=== PATIENT | female | born 1950 | race Caucasian/White ===

== ENCOUNTER 2017-11-25 11:20 | Inpatient (IN) | payer OTHER, MEDICARE ==
--- NOTE | 2017-11-25 11:30 | PDOC ---
History of Present Illness - History of Present Illness Initial Comments: The patient is a 67F with a hx of neuropathy (of unknown origin) and gastric sleeve who presents with 2 days of R second toe increased pain and discoloration that the patient is concerned is infection. The patient endorses fevers at home to 101 and subsequently took Tylenol with resolution of her fever. The patient states that she usually has her toenails cut by a Optical [employer] Mechanic ; however for the last few weeks she has been doing it herself. She denies SWAIN, changes in vision, chest pain, SOB, abdominal pain, N/V/C/D, or dysuria. The patient reports stocking-glove paresthesia at baseline and reports not acute change in sensation 11/25/17 11:50 <Esdras Young - Last Filed: 11/25/17 13:10> <Grace Coronado - Last Filed: 11/25/17 16:07> - General Chief Complaint: Wound Stated Complaint: RT 2ND TOE PAIN, SWELLING Past History - Past Medical History Anemia: No Asthma: No Cancer: Yes (LEFT BREAST 1993,2013 RIGHT BREAST) Cardiac Disorders: No CVA: No COPD: No CHF: No Dementia: No Diabetes: No GI Disorders: No Disorders: No HTN: Yes Hypercholesterolemia: Yes (NO MEDS) Liver Disease: No Seizures: No Thyroid Disease: No - Surgical History Abdominal Surgery: No Appendectomy: Yes Cardiac Surgery: No Cholecystectomy: Yes Lung Surgery: No Neurologic Surgery: No Orthopedic Surgery: No - Suicide/Smoking/Psychosocial Hx Smoking History: Former smoker Have you smoked in the past 12 months: No If you are a former smoker, when did you quit?: 25 YRS AGO Hx Alcohol Use: Yes (OCCASIONALLY) Drug/Substance Use Hx: No Substance Use Type: Alcohol Hx Substance Use Treatment: No <Esdras Young - Last Filed: 11/25/17 13:10> <Grace Coronado - Last Filed: 11/25/17 16:07> - Past Medical History Allergies/Adverse Reactions: Allergies Allergy/AdvReac Type Severity Reaction Status Date / Time No Known Allergies Allergy Verified 11/25/17 11:22 Home Medications: Ambulatory Orders Pramipexole Dihydrochloride [Mirapex -] 0.25 mg PO BID 10/10/13 Aspirin [Aspirin EC] 81 mg PO DAILY 11/25/17 Cholecalciferol (Vitamin D3) [Vitamin D3 -] 3,000 unit PO DAILY 11/25/17 Multivitamin [One Daily] 1 each PO DAILY 11/25/17 Review of Systems - Review of Systems Able to Perform ROS?: Yes Comments:: GENERAL/CONSTITUTIONAL: No fever or chills. No weakness._ HEAD, EYES, EARS, NOSE AND THROAT: No change in vision. No ear pain or discharge. No sore throat._ CARDIOVASCULAR: No chest pain or shortness of breath_ RESPIRATORY: No cough, wheezing, or hemoptysis._ GASTROINTESTINAL: No nausea, vomiting, diarrhea or constipation._ GENITOURINARY: No dysuria, frequency, or change in urination._ MUSCULOSKELETAL: No joint or muscle swelling or pain. No neck or back pain._ SKIN: No rash_ NEUROLOGIC: No headache, vertigo, loss of consciousness, or change in strength/ sensation._ ENDOCRINE: No increased thirst. No abnormal weight change_ HEMATOLOGIC/LYMPHATIC: No anemia, easy bleeding, or history of blood clots._ ALLERGIC/IMMUNOLOGIC: No hives or skin allergy._ 11/25/17 11:56 Is the patient limited Spanish proficient: No <Esdras Young - Last Filed: 11/25/17 13:10> *Physical Exam - Vital Signs 11/25/17 11:56 Vital Signs Temp Pulse Resp BP Pulse Ox 98.1 F 68 18 157/91 99 11/25/17 11:20 11/25/17 11:20 11/25/17 11:20 11/25/17 11:20 11/25/17 11:20 - Physical Exam Comments: GENERAL: Awake, alert, and fully oriented, in no acute distress HEAD: No signs of trauma, normocephalic, atraumatic EYES: PERRL, EOMI, sclera anicteric, conjunctiva clear ENT: Auricles normal inspection, hearing grossly normal, nares patent, oropharynx clear without exudates. Moist mucosa NECK: Normal ROM, supple LUNGS: No distress, speaks full sentences, clear to auscultation bilaterally HEART:Regular rate and rhythm, normal S1 and S2, no murmurs appreciated, peripheral pulses normal and equal bilaterally ABDOMEN: Soft, nontender, normoactive bowel sounds. No guarding, no rebound. No masses NEUROLOGICAL: Cranial nerves II through XII grossly intact. Normal speech, normal gait, no focal sensorimotor deficits SKIN: Warm, Dry, normal turgor, no rashes or lesions noted RLE: Inspection: R second toe distal gangrene and erythema of the toe with medial distal fluctuance. No streaking. R foot warmth > L. Otherwise, compartments soft and compressible, pain within proportion, no pain to passive stretch Sensation: Decreased sensation to light touch up to knee (patient reports at baseline) Motor: 5/5 EHL, 5/5 FHL, 5/5 TA, 5/5GS, 5/5 Quad, 5/5 Ham Vascular: 2+ DP/PT LLE: Inspection: No erythema or ecchymosis. No tenderness, no obvious abnormalities, no open wounds. Compartments soft and compressible, pain within proportion, no pain to passive stretch Knee stable to anterior/posterior drawer and varus/valgus stress Sensation: Decreased sensation to light touch up to knee (patient reports at baseline) Motor: 5/5 EHL, 5/5 FHL, 5/5 TA, 5/5GS, 5/5 Quad, 5/5 Ham Vascular: 2+ DP/PT 11/25/17 11:56 <Esdras Young - Last Filed: 11/25/17 13:10> - Vital Signs Last Vital Signs Temp Pulse Resp BP Pulse Ox 99.1 F 67 18 108/62 96 11/25/17 15:38 11/25/17 15:38 11/25/17 15:38 11/25/17 15:38 11/25/17 15:38 <Grace Coronado - Last Filed: 11/25/17 16:07> ED Treatment Course - LABORATORY CBC & Chemistry Diagram: 11/25/17 12:16 11/25/17 12:16 <Esdras Young - Last Filed: 11/25/17 13:10> - LABORATORY CBC & Chemistry Diagram: 11/25/17 12:16 11/25/17 12:16 - ADDITIONAL ORDERS Additional order review: Laboratory Results 11/25/17 12:16 Sodium 141 Potassium 3.9 Chloride 103 Carbon Dioxide 29 H Anion Gap 9 BUN 15 Creatinine 0.6 Creat Clearance w eGFR > 60 Random Glucose 100 Calcium 9.0 Total Bilirubin 0.7 AST 16 ALT 14 D Alkaline Phosphatase 61 Total Protein 6.5 Albumin 3.5 11/25/17 12:16 RBC 3.71 MCV 96.1 H MCHC 33.7 RDW 12.2 MPV 8.4 - Medications Given in the ED: ED Medications Discontinued Medications Generic Name Dose Route Start Last Admin Trade Name Freq PRN Reason Stop Dose Admin Piperacillin Sod/Tazobactam 50 mls @ 100 mls/hr 11/25/17 12:52 11/25/17 13:11 Sod 3.375 gm/ Dextrose IVPB 11/25/17 13:21 100 mls/hr ONCE ONE Administration Protocol <Grace Coronado - Last Filed: 11/25/17 16:07> *DC/Admit/Observation/Transfer <Esdras Young - Last Filed: 11/25/17 13:10> - Discharge Dispostion Decision to Admit order: Yes <Grace Coronado - Last Filed: 11/25/17 16:07> Diagnosis at time of Disposition: Gangrene - Discharge Dispostion Condition at time of disposition: Stable
[2017-11-25 11:32] VITALS: BMI 27.8
--- NOTE | 2017-11-25 11:59 | PDOC ---
Attending Attestation - Resident Resident Name: AmairanialfonsoEsdras de guzman - ED Attending Attestation I have performed the following: I have examined & evaluated the patient, The case was reviewed & discussed with the resident, I agree w/resident's findings & plan, Exceptions are as noted - HPI HPI: 67 yo F history neuropathy presents with redness and discoloration to R 2nd toe. She states that she used to have her nails cut by someone due to neuropathy , but cut them herself recently because she forgot to make an appointment. She noticed some swelling, redness, then a "bruise" to the tip of the toe. She has been soaking in epsom salt to try to treat it at home. She had a fever last night. Denies pain, however, does not have any feeling in her toes at baseline. - Physicial Exam PE: GENERAL: Awake, alert, and fully oriented, in no acute distress HEAD: No signs of trauma EYES: PERRLA, EOMI, sclera anicteric, conjunctiva clear ENT: Auricles normal inspection, hearing grossly normal, nares patent, oropharynx clear without exudates. Moist mucosa NECK: Normal ROM, supple, no lymphadenopathy, JVD, or masses LUNGS: Breath sounds equal, clear to auscultation bilaterally. No wheezes, and no crackles HEART: Regular rate and rhythm, normal S1 and S2, no murmurs, rubs or gallops ABDOMEN: Soft, nontender, normoactive bowel sounds. No guarding, no rebound. No masses EXTREMITIES: R 2nd toe with redness, dry gangrene at the tip. Foot with normal pulses. Remainder of extremities with normal range of motion, no edema. No clubbing or cyanosis. No cords, erythema, or tenderness NEUROLOGICAL: Cranial nerves II through XII grossly intact. Normal speech, normal gait SKIN: Warm, Dry, normal turgor, no rashes or lesions noted. - Medical Decision Making Pt with history of neuropathy, will plan for admission for gangrene.
[2017-11-25 12:36] LABS: HEMATOCRIT 35.6 % (32.4-45.2); MCH 32.4 pg (25.7-33.7); MCHC 33.7 g/dl (32.0-36.0); MEAN CELL VOLUME 96.1 fl (80-96); MEAN PLT VOLUME 8.4 fl (7.5-11.1); PLATELET COUNT 195 K/MM3 (134-434); RBC 3.71 M/mm3 (3.60-5.2); RDW 12.2 % (11.6-15.6); WHITE BLOOD COUNT 11.1 K/mm3 (4.0-10.8)
[2017-11-25 12:46] LABS: ALBUMIN 3.5 g/dl (3.5-5.0); ALK PHOS 61 U/L (32-92); ANION GAP 9 MMOL/L (8-16); BILIRUBIN,TOTAL 0.7 mg/dl (0.2-1.0); BLOOD UREA NITROGEN 15 mg/dl (7-18); CHLORIDE 103 mmol/L (98-107); CO2 29 mmol/L (22-28); CREATININE 0.6 mg/dl (0.6-1.3); GLUCOSE,RANDOM 100 mg/dl (74-106); POTASSIUM 3.9 mmol/L (3.5-5.1); SGOT/AST 16 U/L (10-42); SGPT/ALT 14 U/L (10-40); SODIUM 141 mmol/L (136-145); TOT PROT 6.5 g/dl (6.4-8.3)
[2017-11-25] MEDS ORDERED: PIPERACILLIN/TAZOB 3.375 GM 3.375 GM in DEXTROSE 5%-WATER - 50 ML IVPB ONE (12:52)
[2017-11-25] MEDS ORDERED: VANCOMYCIN 1,000 MG VIAL (RESTRICTED TO ID ONLY) ONE (12:56)
[2017-11-25] MEDS ORDERED: PIPERACILLIN/TAZOBACTAM 3.375 GM VIAL IVPB ONE (12:56)
[2017-11-25] MEDS ORDERED: VANCOMYCIN 1,000 MG in DEXTROSE 5%-WATER - 250 ML IVPB SCH (13:00)
--- NOTE | 2017-11-25 15:14 | HP ---
CHIEF COMPLAINT: Right foot second toe redness and discoloration PCP: Nelida HISTORY OF PRESENT ILLNESS: This is a 67 year old female with PMHx of neuropathy, bilateral breast cancer ( 1992- L lumpectomy, radiation therapy; 2013 R mastectomy with implant), gastric sleeve 2015, cholecystectomy (age 22), tonsillectomy (age 9), who presented to the ED with right foot, 2nd digit redness and discoloration after cutting her nails. The patient reports she usually sees her insurance producer to have her nails trimmed, but it had been a while so she decided to cut her own nails 2 weeks ago. She reports at the time it bled slightly and she put bacitracin on it. She states she continued the bacitracin and epsom salt soaks daily. She said about one week ago she noticed redness and swelling of her right foot, 2nd digit. She states yesterday she had chills and her temperature was 101.5. She denies any headache, weakness, dizziness, chest pain, palpitations, lower extremity edema. ER course was notable for: (1) Temp 98.1, pulse 68, BP 157/91, resp 18, O2 99% on RA (2) WBC 11.1 (3) Right foot X-ray: soft tissue swelling of second toe, a destructive process is not appreciated Recent Travel: denies PAST MEDICAL HISTORY: As above PAST SURGICAL HISTORY: as above Social History: Smoking: denies Alcohol: denies Drugs: denies Family History: Allergies No Known Allergies Allergy (Verified 11/25/17 11:22) HOME MEDICATIONS: Home Medications Medication Instructions Recorded Pramipexole Dihydrochloride 0.25 mg PO BID 10/10/13 [Mirapex -] Aspirin [Aspirin EC] 81 mg PO DAILY 11/25/17 Cholecalciferol (Vitamin D3) 3,000 unit PO DAILY 11/25/17 [Vitamin D3 -] Multivitamin [One Daily] 1 each PO DAILY 11/25/17 REVIEW OF SYSTEMS CONSTITUTIONAL: Fever 101.5 last night with associated chills Absent: diaphoresis, generalized weakness, malaise, loss of appetite, weight change HEENT: Absent: rhinorrhea, nasal congestion, throat pain, throat swelling, difficulty swallowing, mouth swelling, ear pain, eye pain, visual changes CARDIOVASCULAR: Absent: chest pain, syncope, palpitations, irregular heart rate, lightheadedness , peripheral edema RESPIRATORY: Absent: cough, shortness of breath, dyspnea with exertion, orthopnea, wheezing, stridor, hemoptysis GASTROINTESTINAL: Absent: abdominal pain, abdominal distension, nausea, vomiting, diarrhea, constipation, melena, hematochezia GENITOURINARY: Absent: dysuria, frequency, urgency, hesitancy, hematuria, flank pain, genital pain MUSCULOSKELETAL: Absent: myalgia, arthralgia, joint swelling, back pain, neck pain SKIN: Right foot, 2nd digit redness and swelling with some discoloration at the tip that began about 1 week ago. HEMATOLOGIC/IMMUNOLOGIC: Absent: easy bleeding, easy bruising, lymphadenopathy, frequent infections ENDOCRINE: Absent: unexplained weight gain, unexplained weight loss, heat intolerance, cold intolerance NEUROLOGIC: Absent: headache, focal weakness or paresthesias, dizziness, unsteady gait, seizure, mental status changes, bladder or bowel incontinence PSYCHIATRIC: Absent: anxiety, depression, suicidal or homicidal ideation, hallucinations. PHYSICAL EXAMINATION Vital Signs - 24 hr 11/25/17 11/25/17 11:20 13:35 Temperature 98.1 F 98.6 F Pulse Rate 68 Pulse Rate [ 73 Left Apical] Respiratory 18 18 Rate Blood Pressure 157/91 Blood Pressure 150/69 [Left Arm] O2 Sat by Pulse 99 96 Oximetry (%) GENERAL: Awake, alert, and fully oriented, in no acute distress. HEAD: Normal with no signs of trauma. EYES: Pupils equal, round and reactive to light, extraocular movements intact, sclera anicteric, conjunctiva clear. No lid lag. EARS, NOSE, THROAT: Ears normal, nares patent, oropharynx clear without exudates. Moist mucous membranes. NECK: Normal range of motion, supple without lymphadenopathy, JVD, or masses. LUNGS: Breath sounds equal, clear to auscultation bilaterally. No wheezes, and no crackles. No accessory muscle use. HEART: Regular rate and rhythm, normal S1 and S2 ABDOMEN: Soft, nontender, not distended, normoactive bowel sounds MUSCULOSKELETAL: Normal range of motion at all joints. No bony deformities or tenderness. No CVA tenderness. UPPER EXTREMITIES: 2+ pulses, warm, well-perfused. No cyanosis. No clubbing. No peripheral edema. LOWER EXTREMITIES: Right foot, 2nd digit with erythema, edema, area of dry gangrene on the tip. Some erythema on surrounding digits. 2+ pulses, warm, well- perfused. No calf tenderness. No peripheral edema. NEUROLOGICAL: Cranial nerves II-XII intact. Normal speech. PSYCHIATRIC: Cooperative. Good eye contact. Appropriate mood and affect. SKIN: Warm, dry, normal turgor, no rashes or lesions noted, normal capillary refill. Laboratory Results - last 24 hr 11/25/17 11/25/17 12:16 12:16 WBC 11.1 H RBC 3.71 Hgb 12.0 Hct 35.6 MCV 96.1 H MCH 32.4 MCHC 33.7 RDW 12.2 Plt Count 195 MPV 8.4 Sodium 141 Potassium 3.9 Chloride 103 Carbon Dioxide 29 H Anion Gap 9 BUN 15 Creatinine 0.6 Creat Clearance w eGFR > 60 Random Glucose 100 Calcium 9.0 Total Bilirubin 0.7 AST 16 ALT 14 D Alkaline Phosphatase 61 Total Protein 6.5 Albumin 3.5 Assessment: This is a 67 year old female with PMHx of neuropathy, bilateral breast cancer (1992- L lumpectomy, radiation therapy; 2013 R mastectomy with implant), gastric sleeve 2015, cholecystectomy (age 22), tonsillectomy (age 9), who presented to the ED with right foot, 2nd digit redness and discoloration after cutting her nails. Plan: 1) Right foot cellulitis, dry gangrene - Right foot x-ray with no destructive process appreciated - F/u ESR/CRP - Consider right foot MRI, however will defer to podiatry - Patient received Vancomycin and Zosyn in the ED - Continue Vancomycin - Continue Zosyn - Follow blood cultures - F/u podiatry consult - F/u ID consult 2) HTN - Continue to monitor, patient not on home medications, consider adding if patient continues to by hypertensive 3) F/E/N: - Sodium controlled diet - Monitor electrolytse 4) Prophylaxis: - Heparin 5,000u sq q8h - OOB ambulating 5) Dispo: - Requires continued inpatient care CODE STATUS: FULL CODE Problem List - Problem (1) Neuropathy Code(s): G62.9 - POLYNEUROPATHY, UNSPECIFIED (2) Breast cancer Code(s): C50.919 - MALIGNANT NEOPLASM OF UNSP SITE OF UNSPECIFIED FEMALE BREAST Visit type - Emergency Visit Emergency Visit: Yes ED Registration Date: 11/25/17 Care time: The patient presented to the Emergency Department on the above date and was hospitalized for further evaluation of their emergent condition. - New Patient This patient is new to me today: Yes Date on this admission: 11/25/17 - Critical Care Critical Care patient: No Hospitalist Screening - Colonoscopy Questionnaire Colonoscopy Questionnaire: Colonoscopy Questionnaire - Patient: 50 - 75 years old and never had a screening colonoscopy: Unknown History of colon or rectal polyps, or CA: No History of IBD, Crohn's disease or UC: Unknown History of abdominal radiation therapy as a child: Unknown - Relative: 1 with colon or rectal CA, or polyps at age 60 or younger: Unknown Colon or rectal CA diagnosed at age 45 or younger: Unknown Multiple relatives with colon or rectal CA: Unknown - Outcome: Screening Result: Negative Screen
[2017-11-25] MEDS ORDERED: VANCOMYCIN 1,250 MG in DEXTROSE 5%-WATER - 250 ML IVPB SCH (16:45)
[2017-11-25] MEDS ORDERED: PIPERACILLIN/TAZOB 3.375 GM 3.375 GM in DEXTROSE 5%-WATER - 50 ML IVPB SCH (18:00)
[2017-11-25] MEDS: HEPARIN NA (PORCINE) 5,000 UNITS/ML 1ML VIAL SQ SCH (18:05)
[2017-11-25] MEDS: PIPERACILLIN/TAZOB 3.375 GM 3.375 GM/50 ML BAG IVPB SCH (18:05)
[2017-11-25] MEDS: ACETAMINOPHEN 325 MG TABLET (FP) PO PRN (21:05)
[2017-11-25] MEDS: DOCUSATE SODIUM 100 MG CAPSULE (FP) PO SCH (21:05)
[2017-11-25] MEDS: PRAMIPEXOLE DIHYDROCHLORIDE 0.25 MG TABLET PO SCH (21:05)
[2017-11-26] MEDS: PIPERACILLIN/TAZOB 3.375 GM 3.375 GM/50 ML BAG IVPB SCH ×2 (01:27→10:32)
[2017-11-26] MEDS: HEPARIN NA (PORCINE) 5,000 UNITS/ML 1ML VIAL SQ SCH ×3 (01:27→18:00)
[2017-11-26] MEDS ORDERED: VANCOMYCIN 1,250 MG in DEXTROSE 5%-WATER - 250 ML IVPB SCH (02:00)
[2017-11-26] MEDS ORDERED: VANCOMYCIN 1,250 MG in DEXTROSE 5%-WATER - 250 ML IVPB ONE (02:00)
[2017-11-26] MEDS ORDERED: PT OWN MED DRAWER 7, Y5N ONE ×2 (03:25→23:54)
[2017-11-26] MEDS: ACETAMINOPHEN 325 MG TABLET (FP) PO PRN ×2 (03:38→20:14)
[2017-11-26 09:21] LABS: BASO % 0.2 % (0-2.0); EOS % 1.6 % (0-4.5); HEMATOCRIT 33.5 % (32.4-45.2); HEMOGLOBIN 10.9 GM/dl (10.7-15.3); LYMPH % 17.4 % (8-40); MCH 31.1 pg (25.7-33.7); MCHC 32.4 g/dl (32.0-36.0); MEAN CELL VOLUME 95.9 fl (80-96); MEAN PLT VOLUME 8.7 fl (7.5-11.1); MONO % 5.7 % (3.8-10.2); NEUT % 75.1 % (42.8-82.8); PLATELET COUNT 176 K/MM3 (134-434); RBC 3.49 M/mm3 (3.60-5.2); RDW 12.1 % (11.6-15.6); WHITE BLOOD COUNT 8.4 K/mm3 (4.0-10.8)
[2017-11-26 09:39] LABS: ALBUMIN 3.2 g/dl (3.5-5.0); ALK PHOS 53 U/L (32-92); ANION GAP 8 MMOL/L (8-16); BILIRUBIN,TOTAL 0.6 mg/dl (0.2-1.0); BLOOD UREA NITROGEN 11 mg/dl (7-18); CALCIUM 8.9 mg/dl (8.4-10.2); CHLORIDE 104 mmol/L (98-107); CO2 30 mmol/L (22-28); CREATININE 0.7 mg/dl (0.6-1.3); GLUCOSE,RANDOM 75 mg/dl (74-106); POTASSIUM 4.4 mmol/L (3.5-5.1); SGOT/AST 12 U/L (10-42); SGPT/ALT 13 U/L (10-40); SODIUM 142 mmol/L (136-145); TOT PROT 5.7 g/dl (6.4-8.3)
[2017-11-26] MEDS ORDERED: SODIUM CHLORIDE 1,000 ML IV SCH ×2 (09:45→23:30)
[2017-11-26] MEDS: DOCUSATE SODIUM 100 MG CAPSULE (FP) PO SCH ×2 (10:31→21:12)
[2017-11-26] MEDS: PRAMIPEXOLE DIHYDROCHLORIDE 0.25 MG TABLET PO SCH ×2 (10:31→21:12)
[2017-11-26] MEDS: MULTIVITAMINS (DAILY MVI) TABLET (FP) PO SCH (10:31)
--- NOTE | 2017-11-26 11:54 | PN ---
Physical Exam: SUBJECTIVE: Patient seen and examined. She denies fever, chills, sob. Pt has tenderness to toe. Feels dizzy at times. OBJECTIVE: Vital Signs Period Temp Pulse Resp BP Sys/Byers Pulse Ox Last 24 Hr 98.4 F-99.1 F 67-73 18-18 91-150/45-69 96-99 PE Neuro: alert, awake, cn 2-12intact Pulm: CTAB CV: s1 s2 rrr no mrg Abd: s nt nd +bs Ext: R 2nd toe swelling, erythema, dry gangrene to head, tender, limited rom Laboratory Results - last 24 hr 11/25/17 11/25/17 11/25/17 12:15 12:15 12:16 WBC 11.1 H RBC 3.71 Hgb 12.0 Hct 35.6 MCV 96.1 H MCH 32.4 MCHC 33.7 RDW 12.2 Plt Count 195 MPV 8.4 Absolute Neuts (auto) Neutrophils % Lymphocytes % Monocytes % Eosinophils % Basophils % ESR 89 H Sodium Potassium Chloride Carbon Dioxide Anion Gap BUN Creatinine Creat Clearance w eGFR Random Glucose Calcium Total Bilirubin AST ALT Alkaline Phosphatase C-Reactive Protein 5.5 H Total Protein Albumin 11/25/17 11/26/17 11/26/17 12:16 06:00 06:00 WBC 8.4 RBC 3.49 L Hgb 10.9 Hct 33.5 MCV 95.9 MCH 31.1 MCHC 32.4 RDW 12.1 Plt Count 176 MPV 8.7 Absolute Neuts (auto) 6.3 Neutrophils % 75.1 Lymphocytes % 17.4 Monocytes % 5.7 Eosinophils % 1.6 Basophils % 0.2 ESR Sodium 141 142 Potassium 3.9 4.4 Chloride 103 104 Carbon Dioxide 29 H 30 H Anion Gap 9 8 BUN 15 11 Creatinine 0.6 0.7 Creat Clearance w eGFR > 60 > 60 Random Glucose 100 75 D Calcium 9.0 8.9 Total Bilirubin 0.7 0.6 AST 16 12 D ALT 14 D 13 Alkaline Phosphatase 61 53 C-Reactive Protein Total Protein 6.5 5.7 L Albumin 3.5 3.2 L Active Medications Generic Name Dose Route Start Last Admin Trade Name Freq PRN Reason Stop Dose Admin Acetaminophen 650 mg 11/25/17 20:33 11/26/17 03:38 Tylenol - PO 650 mg Q6H PRN Administration FEVER Docusate Sodium 100 mg 11/25/17 22:00 11/26/17 10:31 Colace - PO 100 mg BID MIKAEL Administration Heparin Sodium (Porcine) 5,000 unit 11/25/17 18:00 11/26/17 10:32 Heparin - SQ 5,000 unit Q8H-IV MIKAEL Administration Vancomycin HCl 1,250 mg/ 250 mls @ 166.667 mls/hr 11/25/17 16:45 Dextrose IVPB Q12H MIKAEL Protocol Piperacillin Sod/Tazobactam 50 mls @ 100 mls/hr 11/25/17 18:00 Sod 3.375 gm/ Dextrose IVPB Q8H-IV MIKAEL Protocol Sodium Chloride 1,000 mls @ 83 mls/hr 11/26/17 09:45 11/26/17 10:31 Normal Saline - IV 11/26/17 21:48 83 mls/hr ASDIR MIKAEL Administration Multivitamins/Minerals/Vitamin C 1 tab 11/26/17 10:00 11/26/17 10:31 Tab-A-Vit - PO 1 tab DAILY MIKAEL Administration Pramipexole Dihydrochloride 0.25 mg 11/25/17 22:00 11/26/17 10:31 Mirapex - PO 0.25 mg BID MIKAEL Administration Imaging: - Right foot x-ray with no destructive process Assessment: 67 year old female with PMHx of neuropathy, bilateral breast cancer (1992- L lumpectomy, radiation therapy; 2013 R mastectomy with implant), gastric sleeve 2016, cholecystectomy (age 22), tonsillectomy (age 9), presented to the ED with right foot, 2nd digit redness and discoloration after cutting her toe nails 2 weeks ago. Plan: 1. Right foot cellulitis, dry gangrene - Leukocytosis improved - Elevated ESR/CRP - MRI lower ext ordered r/o osteo - Vanco/ zosyn started, ID recs to continue - Blood cultures pending - ID, podiatry consulted 2. Hypotension - Possibly due to infectious process - Pt reports baseline SBP ~120's - Start NS 83cc/hr x1L 3. DVT ppx - Heparin 5,000u sq q8h - OOB ambulating Visit type - Emergency Visit Emergency Visit: Yes ED Registration Date: 11/25/17 Care time: The patient presented to the Emergency Department on the above date and was hospitalized for further evaluation of their emergent condition. - New Patient This patient is new to me today: Yes Date on this admission: 11/26/17 - Critical Care Critical Care patient: No - Discharge Referral Referred to [facility] Med P.C.: No
--- NOTE | 2017-11-26 12:17 | PN ---
Progress Note (short form) - Note Progress Note: ID Consult dictated Cellulitis R 2nd toe Peripheral neuropathy Await c/s Podiatry evaluation Empiric vancomycin / zosyn
[2017-11-26] MEDS ORDERED: VANCOMYCIN 1,000 MG VIAL (RESTRICTED TO ID ONLY) ONE (12:43)
[2017-11-26] MEDS: VANCOMYCIN 1,000 MG in DEXTROSE 5%-WATER - 250 ML IVPB SCH (13:00)
--- NOTE | 2017-11-26 14:12 | CONS ---
DATE OF CONSULTATION: DATE OF DICTATION: 11/26/2017 The patient is a 67-year-old non-diabetic female who is evaluated for cellulitis of the right 2nd toe. The patient states that she cut her toenails approximately 2 weeks ago and may have nicked the paronychial area. Approximately 2 days prior to admission, she developed worsening erythema, warmth, and tenderness of the right 2nd toe. She reports having fever to 101 at home with chills. She presented to the emergency room, where she was found to have cellulitis of the right 2nd toe. An x-ray was done and showed soft tissue swelling. She was empirically treated with vancomycin and Zosyn. The patient is non-diabetic, however, she suffers from a peripheral neuropathy of unclear etiology. She denies prior history of serious soft tissue infection requiring hospitalization or history of resistant skin pathogens. Past medical history positive for breast cancer, status post lumpectomy and radiation therapy, peripheral neuropathy. PAST SURGICAL HISTORY: Status post gastric sleeve and cholecystectomy. No known allergies. MEDICATIONS: Mirapex, aspirin, multivitamins. SOCIAL HISTORY: Former smoker. Occasional EtOH. Lives at home in the community. SYSTEMS REVIEW: Neurologic: No loss of consciousness, seizure activity, or focal weakness. Cardiac: Negative chest pain or palpitations. Respiratory: Negative cough or sputum production. Gastrointestinal: Negative vomiting or diarrhea. Genitourinary: Negative for urinary tract infection. LABORATORY DATA: White count 11.1, hematocrit 35.6, platelets 195, creatinine 0.6. Liver enzymes normal. ESR 89, C-reactive protein 5.5, blood cultures pending. PHYSICAL EXAMINATION: General: She is awake and alert, she is not acutely toxic appearing. Vital Signs: Temperature 98.7. Blood pressure 91/58. Pulse 68, regular. Respirations 18 per minute. Eyes: Sclerae anicteric. Heart Sounds: S1, S2. Lungs: Clear. Abdomen: Soft. No tenderness elicited. No mass, rebound or rigidity. Extremities: Examination of the right foot, there is diffuse swelling of the right 2nd toe with confluent erythema. There appears to be a hemorrhagic bulla the distal aspect of the toe. It is nontender. No crepitus or fluctuance. No lymphangitic streaking. IMPRESSION: 1. Cellulitis, right 2nd toe. 2. Peripheral neuropathy. Await culture results. Podiatry evaluation. Empiric antibiotic coverage with vancomycin and Zosyn pending cultures. Will follow. Thank you for the kind referral. ENRIQUE ALLEN M.D. LESTER/[id number]
[2017-11-27] MEDS: VANCOMYCIN 1,000 MG in DEXTROSE 5%-WATER - 250 ML IVPB SCH (00:12)
[2017-11-27] MEDS: HEPARIN NA (PORCINE) 5,000 UNITS/ML 1ML VIAL SQ SCH ×3 (01:36→18:30)
[2017-11-27] MEDS: PIPERACILLIN/TAZOB 3.375 GM 3.375 GM in DEXTROSE 5%-WATER - 50 ML IVPB SCH ×2 (02:18→22:14)
[2017-11-27] MEDS: ACETAMINOPHEN 325 MG TABLET (FP) PO PRN ×3 (05:49→21:17)
[2017-11-27 07:43] LABS: BASO % 0.3 % (0-2.0); EOS % 2.4 % (0-4.5); HEMATOCRIT 33.5 % (32.4-45.2); HEMOGLOBIN 10.7 GM/dl (10.7-15.3); MCH 30.5 pg (25.7-33.7); MCHC 31.9 g/dl (32.0-36.0); MEAN CELL VOLUME 95.8 fl (80-96); MEAN PLT VOLUME 8.1 fl (7.5-11.1); MONO % 8.1 % (3.8-10.2); NEUT % 65.2 % (42.8-82.8); PLATELET COUNT 168 K/MM3 (134-434); RDW 11.8 % (11.6-15.6); WHITE BLOOD COUNT 5.1 K/mm3 (4.0-10.8)
--- NOTE | 2017-11-27 07:57 | PN ---
Physical Exam: SUBJECTIVE: Patient seen and examined, Patient reports point tenderness to the right second digit of the foot denies any fever. OBJECTIVE:67 year old female with PMHx of neuropathy, bilateral breast cancer ( 1992- L lumpectomy, radiation therapy; 2013 R mastectomy with implant), gastric sleeve 2016, cholecystectomy (age 22), tonsillectomy (age 9 Vital Signs Period Temp Pulse Resp BP Sys/Byers Pulse Ox Last 24 Hr 98 F-99.1 F 50-73 16-18 87-119/43-53 94-98 GENERAL: The patient is awake, alert, and fully oriented, in no acute distress. HEAD: Normal with no signs of trauma. EYES: PERRL, extraocular movements intact, sclera anicteric, conjunctiva clear. No ptosis. ENT: Ears normal, nares patent, oropharynx clear without exudates, moist mucous membranes. NECK: Trachea midline, full range of motion, supple. LUNGS: Breath sounds equal, clear to auscultation bilaterally, no wheezes, no crackles, no accessory muscle use. HEART: Regular rate and rhythm, S1, S2 without murmur, rub or gallop. ABDOMEN: Soft, nontender, nondistended, normoactive bowel sounds, no guarding, no rebound, no hepatosplenomegaly, no masses. EXTREMITIES: 2+ pulses, warm, well-perfused, no edema. rIGHT LOWER EXTREMITY: Right foot--> second digit, necrosis of the distal digit noted, open wound to the dorsal aspect of phalanx noted erythema to the proximal digit NEUROLOGICAL: Cranial nerves II through XII grossly intact. Normal speech, gait not observed. PSYCH: Normal mood, normal affect. SKIN: Warm, dry, normal turgor, no rashes or lesions noted Laboratory Results - last 24 hr 11/26/17 11/26/17 11/27/17 06:00 06:00 07:15 WBC 8.4 5.1 RBC 3.49 L 3.50 L Hgb 10.9 10.7 Hct 33.5 33.5 MCV 95.9 95.8 MCH 31.1 30.5 MCHC 32.4 31.9 L RDW 12.1 11.8 Plt Count 176 168 MPV 8.7 8.1 Absolute Neuts (auto) 6.3 3.4 Neutrophils % 75.1 65.2 Lymphocytes % 17.4 24.0 Monocytes % 5.7 8.1 Eosinophils % 1.6 2.4 Basophils % 0.2 0.3 Sodium 142 Potassium 4.4 Chloride 104 Carbon Dioxide 30 H Anion Gap 8 BUN 11 Creatinine 0.7 Creat Clearance w eGFR > 60 Random Glucose 75 D Calcium 8.9 Total Bilirubin 0.6 AST 12 D ALT 13 Alkaline Phosphatase 53 Total Protein 5.7 L Albumin 3.2 L Active Medications Generic Name Dose Route Start Last Admin Trade Name Freq PRN Reason Stop Dose Admin Acetaminophen 650 mg 11/25/17 20:33 11/27/17 05:49 Tylenol - PO 650 mg Q6H PRN Administration FEVER Docusate Sodium 100 mg 11/25/17 22:00 11/26/17 21:12 Colace - PO 100 mg BID MIKAEL Administration Heparin Sodium (Porcine) 5,000 unit 11/25/17 18:00 11/27/17 01:36 Heparin - SQ 5,000 unit Q8H-IV MIKAEL Administration Vancomycin HCl 1,000 mg/ 250 mls @ 166.667 mls/hr 11/26/17 12:30 11/27/17 00: 12 Dextrose IVPB 166.667 mls/hr Q12H MIKAEL Administration Protocol Piperacillin Sod/Tazobactam 50 mls @ 100 mls/hr 11/26/17 18:00 11/27/17 02:18 Sod 3.375 gm/ Dextrose IVPB 100 mls/hr Q8H-IV MIKAEL Administration Protocol Sodium Chloride 1,000 mls @ 100 mls/hr 11/26/17 23:30 11/26/17 23:33 Normal Saline - IV 100 mls/hr ASDIR MIKAEL Administration Multivitamins/Minerals/Vitamin C 1 tab 11/26/17 10:00 11/26/17 10:31 Tab-A-Vit - PO 1 tab DAILY MIKAEL Administration Pramipexole Dihydrochloride 0.25 mg 11/25/17 22:00 11/26/17 21:12 Mirapex - PO 0.25 mg BID MIKAEL Administration Microbiology 11/25/17 12:30 Blood - Peripheral Venous Blood Culture - Preliminary NO GROWTH OBTAINED AFTER 48 HOURS, INCUBATION TO CONTINUE FOR 3 DAYS. 11/25/17 12:15 Blood - Peripheral Venous Blood Culture - Preliminary NO GROWTH OBTAINED AFTER 48 HOURS, INCUBATION TO CONTINUE FOR 3 DAYS. IMAGING MRI of lower extremity: Soft tissue edema of the foot extending into the second toe blistering on the lateral aspect of the mid to distal second toe and over the dorsal aspect of the distal phalanx, bone marrow edema the distal phalanx of the second toe consistent with osteomyelitis ASSESSMENT/PLAN: 1Osteomyelitis of right second digit of foot - Leukocytosis improved pt is afebrile - MRI lower ext ordered r/o osteo - continue Vanco/ zosyn (11/26 -) - Blood cultures ntd - ID consulted and followed - podiatry consulted and followed 2. Hypotension - improved after IV fluids - close monitoring q4h 3. DVT ppx - Heparin 5,000u sq q8h - OOB ambulating Visit type - Emergency Visit Emergency Visit: Yes ED Registration Date: 11/25/17 Care time: The patient presented to the Emergency Department on the above date and was hospitalized for further evaluation of their emergent condition. - New Patient This patient is new to me today: Yes Date on this admission: 11/27/17 - Critical Care Critical Care patient: No - Discharge Referral Referred to [facility] Med P.C.: No
[2017-11-27 07:58] LABS: ANION GAP 4 MMOL/L (8-16); BLOOD UREA NITROGEN 9 mg/dl (7-18); CALCIUM 8.3 mg/dl (8.4-10.2); CHLORIDE 110 mmol/L (98-107); CO2 28 mmol/L (22-28); CREATININE 0.7 mg/dl (0.6-1.3); GLUCOSE,RANDOM 91 mg/dl (74-106); POTASSIUM 4.2 mmol/L (3.5-5.1); SODIUM 142 mmol/L (136-145)
[2017-11-27] MEDS: DOCUSATE SODIUM 100 MG CAPSULE (FP) PO SCH ×2 (09:37→21:15)
[2017-11-27] MEDS: PRAMIPEXOLE DIHYDROCHLORIDE 0.25 MG TABLET PO SCH ×2 (09:37→21:15)
[2017-11-27] MEDS: PIPERACILLIN/TAZOB 3.375 GM 3.375 GM/50 ML BAG IVPB SCH ×2 (09:38→18:10)
[2017-11-27] MEDS: MULTIVITAMINS (DAILY MVI) TABLET (FP) PO SCH (09:38)
--- NOTE | 2017-11-27 10:08 | PN ---
Progress Note, Physician History of Present Illness: Awake, alert Supine in bed No c/o foot pain ( peripheral neuropathy ) No fever/ chills - Current Medication List Current Medications: Active Medications Acetaminophen (Tylenol -) 650 mg PO Q6H PRN PRN Reason: FEVER Last Admin: 11/27/17 05:49 Dose: 650 mg Docusate Sodium (Colace -) 100 mg PO BID MIKAEL Last Admin: 11/26/17 21:12 Dose: 100 mg Heparin Sodium (Porcine) (Heparin -) 5,000 unit SQ Q8H-IV MIKAEL Last Admin: 11/27/17 01:36 Dose: 5,000 unit Sodium Chloride (Normal Saline -) 1,000 mls @ 100 mls/hr IV ASDIR MIKAEL Last Admin: 11/26/17 23:33 Dose: 100 mls/hr Piperacillin Sod/Tazobactam Sod (Zosyn 3.375gm Ivpb (Pre-Docked)) 3.375 gm in 50 mls @ 100 mls/hr IVPB Q8H-IV MIKAEL; Protocol Vancomycin HCl (Vancomycin (Pre-Docked)) 1,000 mg in 250 mls @ 166.667 mls/hr IVPB Q12H MIKAEL; Protocol Multivitamins/Minerals/Vitamin C (Tab-A-Vit -) 1 tab PO DAILY [facility] Last Admin: 11/26/17 10:31 Dose: 1 tab Pramipexole Dihydrochloride (Mirapex -) 0.25 mg PO BID MIKAEL Last Admin: 11/26/17 21:12 Dose: 0.25 mg - Objective Vital Signs: Vital Signs Temperature 98.7 F 11/27/17 06:00 Pulse Rate 67 11/27/17 06:00 Respiratory Rate 18 11/27/17 07:48 Blood Pressure 119/53 11/27/17 06:00 O2 Sat by Pulse Oximetry (%) 94 L 11/27/17 07:48 Constitutional: Yes: No Distress Eyes: Yes: Conjunctiva Clear Cardiovascular: Yes: Regular Rate and Rhythm, S1, S2 Respiratory: Yes: CTA Bilaterally Gastrointestinal: Yes: Normal Bowel Sounds, Soft. No: Tenderness Extremities: Yes: Other (R 2nd toe diffusely swollen and erythematous + hemorrhagic bulla distal tip) Labs: CBC, BMP 11/27/17 07:15 11/27/17 07:15 Assessment/Plan Cellulitis R 2nd toe ? osteomyelitis Peripheral neuropathy Continue empiric vancomycin/ zosyn MRI Podiatry evaluation
[2017-11-27] MEDS: VANCOMYCIN 1 GRAM (PRE-DOCKED) 1,000 MG/250 ML BAG IVPB SCH (12:43)
--- NOTE | 2017-11-27 20:26 | CONSULT ---
Consult Consult Specialty:: Podiatry Reason for Consultation:: Abscess with OM right 2nd toe - History of Present Illness Chief Complaint: Abscess with OM 2nd toe right. History of Present Illness: Neuropathic patient. States not diabetic. Believes radiation side effect was neuropathy. States tried to cut her own toe nail and cut her skin. Used to go to a [employer] over 1 year ago. - History Source History Provided By: Patient - Past Medical History MERCHANDISING COORDINATOR: Yes: Peripheral Neuropathy ...: No - Alcohol/Substance Use Hx Alcohol Use: Yes (OCCASIONALLY) - Smoking History Smoking history: Former smoker Have you smoked in the past 12 months: No If you are a former smoker, when did you quit?: 25 YRS AGO Home Medications - Allergies Allergies/Adverse Reactions: Allergies Allergy/AdvReac Type Severity Reaction Status Date / Time No Known Allergies Allergy Verified 11/25/17 11:22 - Home Medications Home Medications: Ambulatory Orders Pramipexole Dihydrochloride [Mirapex -] 0.25 mg PO BID 10/10/13 Aspirin [Aspirin EC] 81 mg PO DAILY 11/25/17 Cholecalciferol (Vitamin D3) [Vitamin D3 -] 3,000 unit PO DAILY 11/25/17 Multivitamin [One Daily] 1 each PO DAILY 11/25/17 Review of Systems Findings/Remarks: +edematous 2nd toe right with fluctuance, +discolored tip of toe, +localized cellulitis, Physical Exam Vital Signs: Vital Signs Temperature 99.0 F 11/27/17 14:14 Pulse Rate 66 11/27/17 14:14 Respiratory Rate 16 11/27/17 14:14 Blood Pressure 113/47 11/27/17 14:14 O2 Sat by Pulse Oximetry (%) 99 11/27/17 14:14 Labs: CBC, BMP 11/27/17 07:15 11/27/17 07:15 Imaging - Results MRI: Report Reviewed (OM 2nd toe right) Assessment/Plan om abscess Vascular consult. I&D bedside to be done tomorrow. Needs consent. Will do wound culture with drainage. Will follow.
[2017-11-28] MEDS: VANCOMYCIN 1 GRAM (PRE-DOCKED) 1,000 MG/250 ML BAG IVPB SCH ×2 (00:10→13:05)
[2017-11-28] MEDS: HEPARIN NA (PORCINE) 5,000 UNITS/ML 1ML VIAL SQ SCH ×3 (01:11→18:52)
[2017-11-28] MEDS: PIPERACILLIN/TAZOB 3.375 GM 3.375 GM/50 ML BAG IVPB SCH ×3 (01:11→18:52)
--- NOTE | 2017-11-28 07:57 | CONSULT ---
- Consultation REQUESTING PROVIDER: CONSULT REQUEST: We have been asked to surgically evaluate this patient for osteomylitis/cellulitis right 2nd toe. PCP:Dede Arellano HISTORY OF PRESENT ILLNESS: This is a 67 year old female with PMHx of peripheral neuropathy (of unclear etiology possible post radiation), bilateral breast cancer (1992- L lumpectomy, radiation therapy; 2013 R mastectomy with implant), gastric sleeve 2016, cholecystectomy (age 22), tonsillectomy (age 9), who presented with right foot 2nd toe redness edema and discoloration after cutting her nails approximately 2 weeks ago. The patient states she noticed some blood at the 2nd toe after cutting her nails but didn't have any pain. Shortly after, she visited a water park with her family. She applied bacitracin and a clean dressing to the toe over the following days but noticed the toe looked worse and she developed a fever and chills approximately 10 days after cutting her nails. She denies any headache, SOB, weakness, dizziness, chest pain, palpitations, lower extremity edema. She ambulates without the use of assistive devices. PMHx: peripheral neuropathy brast CA restless leg sydrome PSHx: Gastric sleeve Cholecystectomy tonsillectomy R mastectomy with reconstruction L breast lumpectomy Home Medications Medication Instructions Recorded Pramipexole Dihydrochloride 0.25 mg PO BID 10/10/13 [Mirapex -] Aspirin [Aspirin EC] 81 mg PO DAILY 11/25/17 Cholecalciferol (Vitamin D3) 3,000 unit PO DAILY 11/25/17 [Vitamin D3 -] Multivitamin [One Daily] 1 each PO DAILY 11/25/17 Allergies Allergy/AdvReac Type Severity Reaction Status Date / Time No Known Allergies Allergy Verified 11/25/17 11:22 REVIEW OF SYSTEMS: CONSTITUTIONAL: Absent: diaphoresis, generalized weakness, malaise, CARDIOVASCULAR: Absent: chest pain, syncope, palpitations, lightheadedness, peripheral edema RESPIRATORY: Absent: cough, shortness of breath, dyspnea with exertion, wheezing, stridor, GASTROINTESTINAL: Absent: abdominal pain, abdominal distension, nausea, vomiting, diarrhea, GENITOURINARY: Absent: dysuria, frequency, urgency, hesitancy, Musculoskeletal Absent: myalgia, arthralgia, joint swelling, back pain, SKIN: Absent: rash, itching, pallor HEMATOLOGIC/IMMUNOLOGIC: Absent: easy bleeding, easy bruising, lymphadenopathy NEUROLOGIC: Absent: headache, focal weakness, dizziness, unsteady gait, seizure, mental status changes, bladder or bowel incontinence PSYCHIATRIC: Absent: anxiety, depression, suicidal or homicidal ideation, hallucinations. PHYSICAL EXAM: GENERAL: Awake, alert, and fully oriented, in no acute distress. HEAD: Normal with no signs of trauma. EYES: sclera anicteric, conjunctiva clear. LUNGS: unlabored resp on RA, No accessory muscle use. MUSCULOSKELETAL: moving all extremities without limitation. No bony deformities. UPPER EXTREMITIES: No peripheral edema. LOWER EXTREMITIES: Left foot warm and well perfused, 2nd toe with ecchymosis and discoloration extending from DIP to nail bed, large palpable fluid filled blister extending from nail bed to plantar surface of distal phalanx with some scabbing. Blanching erythema and cellulitis noted From MTP to DIP, Slightly ttp throughout , patient able to flex and extend all toes joints but limited 2/2 edema, B/L LE skin intact with no evidence of chronic skin changes, lesions or rashes. Compartments soft, supple and non-tender to palpation. feet warm and well perfused with palpable DP and TP pulses. Diminished sensation to light tough throughout. NEUROLOGICAL: Normal speech, gait not observed. PSYCH: Cooperative. Good eye contact. Appropriate mood and affect. SKIN: Warm, dry, normal turgor, no rashes or lesions noted. Vital Signs Temperature 98.8 F 11/28/17 06:33 Pulse Rate 69 11/28/17 06:33 Respiratory Rate 18 11/28/17 06:33 Blood Pressure 114/63 11/28/17 06:33 O2 Sat by Pulse Oximetry (%) 94 L 11/28/17 06:33 Lab Results WBC 5.1 K/mm3 (4.0-10.8) 11/27/17 07:15 RBC 3.50 M/mm3 (3.60-5.2) L 11/27/17 07:15 Hgb 10.7 GM/dl (10.7-15.3) 11/27/17 07:15 Hct 33.5 % (32.4-45.2) 11/27/17 07:15 MCV 95.8 fl (80-96) 11/27/17 07:15 MCHC 31.9 g/dl (32.0-36.0) L 11/27/17 07:15 RDW 11.8 % (11.6-15.6) 11/27/17 07:15 Plt Count 168 K/MM3 (134-434) 11/27/17 07:15 Sodium 142 mmol/L (136-145) 11/27/17 07:15 Potassium 4.2 mmol/L (3.5-5.1) 11/27/17 07:15 Chloride 110 mmol/L (98-107) H 11/27/17 07:15 Carbon Dioxide 28 mmol/L (22-28) 11/27/17 07:15 Anion Gap 4 MMOL/L (8-16) L 11/27/17 07:15 BUN 9 mg/dl (7-18) 11/27/17 07:15 Creatinine 0.7 mg/dl (0.6-1.3) 11/27/17 07:15 Random Glucose 91 mg/dl (74-106) D 11/27/17 07:15 Calcium 8.3 mg/dl (8.4-10.2) L 11/27/17 07:15 MRI Right foot: Soft tissue edema of foot extending into 2nd toe, blistering and fluid collection seen, open wound over plantar surface of distal phalanx, bony edema throughout the distal phalanx consistent with Osteomyelits Problem List - Problems (1) Osteomyelitis Assessment/Plan: 67 yo female with isolated osteomyelitis and cellulitis of the right second toe. Question of abscess vs. hematoma collection in the setting of palpable distal pulses and no indication for vascular intervention. 1) Defer all care to podiatry- Bedside I&D planed for later today 2) Culture wound 3) IV ABX per ID 4) Reconsult vascular surgery PRN evaluation and plan discussed with Dr Olivas Code(s): M86.9 - OSTEOMYELITIS, UNSPECIFIED
[2017-11-28] MEDS: ACETAMINOPHEN 325 MG TABLET (FP) PO PRN (07:58)
[2017-11-28 08:28] LABS: BASO % 0.4 % (0-2.0); EOS % 2.7 % (0-4.5); HEMATOCRIT 33.9 % (32.4-45.2); HEMOGLOBIN 11.4 GM/dl (10.7-15.3); LYMPH % 28.4 % (8-40); MCH 32.6 pg (25.7-33.7); MCHC 33.7 g/dl (32.0-36.0); MEAN CELL VOLUME 96.5 fl (80-96); MEAN PLT VOLUME 8.2 fl (7.5-11.1); MONO % 7.3 % (3.8-10.2); NEUT % 61.2 % (42.8-82.8); PLATELET COUNT 184 K/MM3 (134-434); RBC 3.51 M/mm3 (3.60-5.2); RDW 11.8 % (11.6-15.6); WHITE BLOOD COUNT 5.4 K/mm3 (4.0-10.8)
[2017-11-28 08:54] LABS: ANION GAP 5 MMOL/L (8-16); BLOOD UREA NITROGEN 9 mg/dl (7-18); CALCIUM 8.7 mg/dl (8.4-10.2); CHLORIDE 106 mmol/L (98-107); CO2 30 mmol/L (22-28); CREATININE 0.7 mg/dl (0.6-1.3); GLUCOSE,RANDOM 84 mg/dl (74-106); PHOSPHOROUS 3.9 mg/dl (2.5-4.6); POTASSIUM 4.2 mmol/L (3.5-5.1); SODIUM 141 mmol/L (136-145)
--- NOTE | 2017-11-28 09:23 | PN ---
Physical Exam: SUBJECTIVE: Patient seen and examined, pt is s/p ID of right 2nd toe, reports relief of pressure to digit, denies any tactile fever OBJECTIVE: 67 year old female with PMHx of neuropathy, bilateral breast cancer (1992- L lumpectomy, radiation therapy; 2013 R mastectomy with implant), gastric sleeve 2016, cholecystectomy (age 22), tonsillectomy (age 9). Patient was admitted for emergency department for cellulitis of the right second digit Vital Signs Period Temp Pulse Resp BP Sys/Byers Pulse Ox Last 24 Hr 98.6 F-99.0 F 61-70 16-18 113-130/47-69 94-99 GENERAL: The patient is awake, alert, and fully oriented, in no acute distress. HEAD: Normal with no signs of trauma. EYES: PERRL, extraocular movements intact, sclera anicteric, conjunctiva clear. No ptosis. ENT: Ears normal, nares patent, oropharynx clear without exudates, moist mucous membranes. NECK: Trachea midline, full range of motion, supple. LUNGS: Breath sounds equal, clear to auscultation bilaterally, no wheezes, no crackles, no accessory muscle use. HEART: Regular rate and rhythm, S1, S2 without murmur, rub or gallop. ABDOMEN: Soft, nontender, nondistended, normoactive bowel sounds, no guarding, no rebound, no hepatosplenomegaly, no masses. EXTREMITIES: 2+ pulses, warm, well-perfused, no edema. rIGHT LOWER EXTREMITY: Right foot--> second digit, erythema to distal digit NEUROLOGICAL: Cranial nerves II through XII grossly intact. Normal speech, gait not observed. PSYCH: Normal mood, normal affect. SKIN: Warm, dry, normal turgor, no rashes or lesions noted Laboratory Results - last 24 hr 11/28/17 11/28/17 07:35 07:35 WBC 5.4 RBC 3.51 L Hgb 11.4 Hct 33.9 MCV 96.5 H MCH 32.6 MCHC 33.7 RDW 11.8 Plt Count 184 MPV 8.2 Absolute Neuts (auto) 3.3 Neutrophils % 61.2 Lymphocytes % 28.4 Monocytes % 7.3 Eosinophils % 2.7 Basophils % 0.4 Sodium 141 Potassium 4.2 Chloride 106 Carbon Dioxide 30 H Anion Gap 5 L BUN 9 Creatinine 0.7 Creat Clearance w eGFR > 60 Random Glucose 84 Calcium 8.7 Phosphorus 3.9 Magnesium 2.0 Active Medications Generic Name Dose Route Start Last Admin Trade Name Freq PRN Reason Stop Dose Admin Acetaminophen 650 mg 11/25/17 20:33 11/28/17 07:58 Tylenol - PO 650 mg Q6H PRN Administration FEVER Docusate Sodium 100 mg 11/25/17 22:00 11/27/17 21:15 Colace - PO 100 mg BID MIKAEL Administration Heparin Sodium (Porcine) 5,000 unit 11/25/17 18:00 11/28/17 01:11 Heparin - SQ 5,000 unit Q8H-IV MIKAEL Administration Piperacillin Sod/Tazobactam Sod 3.375 gm in 50 mls @ 100 mls/hr 11/27/17 10: 00 11/28/17 01:11 Zosyn 3.375gm Ivpb (Pre-Docked) IVPB 100 mls/hr Q8H-IV MIKAEL Administration Protocol Vancomycin HCl 1,000 mg in 250 mls @ 166.667 mls/hr 11/27/17 12:30 11/28/17 00:10 Vancomycin (Pre-Docked) IVPB 166.667 mls/hr Q12H MIKAEL Administration Protocol Multivitamins/Minerals/Vitamin C 1 tab 11/26/17 10:00 11/27/17 09:38 Tab-A-Vit - PO 1 tab DAILY MIKAEL Administration Pramipexole Dihydrochloride 0.25 mg 11/25/17 22:00 11/27/17 21:15 Mirapex - PO 0.25 mg BID MIKAEL Administration Microbiology 11/25/17 12:30 Blood Culture - Preliminary Blood - Peripheral Venous NO GROWTH OBTAINED AFTER 72 HOURS, INCUBATION TO CONTINUE FOR 2 DAYS. 11/25/17 12:15 Blood Culture - Preliminary Blood - Peripheral Venous NO GROWTH OBTAINED AFTER 72 HOURS, INCUBATION TO CONTINUE FOR 2 DAYS. IMAGING MRI of lower extremity: Soft tissue edema of the foot extending into the second toe blistering on the lateral aspect of the mid to distal second toe and over the dorsal aspect of the distal phalanx, bone marrow edema the distal phalanx of the second toe consistent with osteomyelitis ASSESSMENT/PLAN: 1Osteomyelitis of right second digit of foot s/p I&D of right 2nd digit - Leukocytosis improved pt is afebrile - continue Vanco/ zosyn (11/26 -) - Blood cultures ntd, follow up wound cultures - ID consulted and followed - podiatry consulted and followed 2. Hypotension - improved after IV fluids - close monitoring q4h 3. DVT ppx - Heparin 5,000u sq q8h - OOB ambulating Visit type - Emergency Visit Emergency Visit: Yes ED Registration Date: 11/25/17 Care time: The patient presented to the Emergency Department on the above date and was hospitalized for further evaluation of their emergent condition. - New Patient This patient is new to me today: No - Critical Care Critical Care patient: No - Discharge Referral Referred to [facility] Med P.C.: No
[2017-11-28] MEDS: PRAMIPEXOLE DIHYDROCHLORIDE 0.25 MG TABLET PO SCH ×2 (09:26→21:02)
[2017-11-28] MEDS: MULTIVITAMINS (DAILY MVI) TABLET (FP) PO SCH (09:27)
[2017-11-28] MEDS: DOCUSATE SODIUM 100 MG CAPSULE (FP) PO SCH ×2 (09:28→21:02)
--- NOTE | 2017-11-28 10:25 | PN ---
Progress Note, Physician History of Present Illness: Awake, alert Supine in bed No c/o foot pain ( peripheral neuropathy ) No fever/ chills Afebrile WBC WNL MRI + OM BC (-) - Current Medication List Current Medications: Active Medications Acetaminophen (Tylenol -) 650 mg PO Q6H PRN PRN Reason: FEVER Last Admin: 11/28/17 07:58 Dose: 650 mg Docusate Sodium (Colace -) 100 mg PO BID MIKAEL Last Admin: 11/28/17 09:28 Dose: 100 mg Heparin Sodium (Porcine) (Heparin -) 5,000 unit SQ Q8H-IV MIKAEL Last Admin: 11/28/17 09:26 Dose: 5,000 unit Piperacillin Sod/Tazobactam Sod (Zosyn 3.375gm Ivpb (Pre-Docked)) 3.375 gm in 50 mls @ 100 mls/hr IVPB Q8H-IV MIKAEL; Protocol Last Admin: 11/28/17 09:27 Dose: 100 mls/hr Vancomycin HCl (Vancomycin (Pre-Docked)) 1,000 mg in 250 mls @ 166.667 mls/hr IVPB Q12H MIKAEL; Protocol Last Admin: 11/28/17 00:10 Dose: 166.667 mls/hr Multivitamins/Minerals/Vitamin C (Tab-A-Vit -) 1 tab PO DAILY MIKAEL Last Admin: 11/28/17 09:27 Dose: 1 tab Pramipexole Dihydrochloride (Mirapex -) 0.25 mg PO BID MIKAEL Last Admin: 11/28/17 09:26 Dose: 0.25 mg - Objective Vital Signs: Vital Signs Temperature 98.0 F 11/28/17 10:00 Pulse Rate 72 11/28/17 10:00 Respiratory Rate 11/28/17 10:00 Blood Pressure 110/61 11/28/17 10:00 O2 Sat by Pulse Oximetry (%) 94 L 11/28/17 06:33 Constitutional: Yes: No Distress Eyes: Yes: Conjunctiva Clear Cardiovascular: Yes: Regular Rate and Rhythm, S1, S2 Respiratory: Yes: CTA Bilaterally Gastrointestinal: Yes: Normal Bowel Sounds, Soft. No: Tenderness Extremities: Yes: Other (dereased erythema 2nd toe + hemorrhagic bulla distal toe) Labs: CBC, BMP 11/28/17 07:35 11/28/17 07:35 Assessment/Plan Cellulitis R 2nd toe + osteomyelitis Peripheral neuropathy Continue empiric vancomycin/ zosyn For I&D of toe
--- NOTE | 2017-11-28 12:48 | OP ---
Operative Note - Note: Operative Date: 11/28/17 Pre-Operative Diagnosis: Abscess with osteomyelitis 2nd toe right Operation: I&D abscess right 2nd toe Findings: Abscess right 2nd toe. Post-Operative Diagnosis: Same as Pre-op Surgeon: Luis Lora Specimens Removed: necrotic tissue, abscess Estimated Blood Loss (mls): 5 Instrument used (Debridements only): 18 guage needle, sterile meat pickler, sterile scissors Operative Report Dictated: No
[2017-11-28 13:39] LABS: BASO % 0.5 % (0-2.0); EOS % 2.4 % (0-4.5); HEMATOCRIT 33.1 % (32.4-45.2); HEMOGLOBIN 11.2 GM/dl (10.7-15.3); LYMPH % 24.6 % (8-40); MCH 32.4 pg (25.7-33.7); MEAN CELL VOLUME 95.3 fl (80-96); MEAN PLT VOLUME 8.2 fl (7.5-11.1); MONO % 5.7 % (3.8-10.2); NEUT % 66.8 % (42.8-82.8); PLATELET COUNT 202 K/MM3 (134-434); RBC 3.47 M/mm3 (3.60-5.2); RDW 11.9 % (11.6-15.6); WHITE BLOOD COUNT 5.4 K/mm3 (4.0-10.8)
[2017-11-29] MEDS: VANCOMYCIN 1 GRAM (PRE-DOCKED) 1,000 MG/250 ML BAG IVPB SCH ×2 (00:42→13:15)
[2017-11-29] MEDS: HEPARIN NA (PORCINE) 5,000 UNITS/ML 1ML VIAL SQ SCH ×3 (01:39→18:29)
[2017-11-29] MEDS: PIPERACILLIN/TAZOB 3.375 GM 3.375 GM/50 ML BAG IVPB SCH ×3 (01:39→18:29)
[2017-11-29] MEDS: MULTIVITAMINS (DAILY MVI) TABLET (FP) PO SCH (09:48)
[2017-11-29] MEDS: PRAMIPEXOLE DIHYDROCHLORIDE 0.25 MG TABLET PO SCH ×2 (09:48→21:24)
[2017-11-29] MEDS: DOCUSATE SODIUM 100 MG CAPSULE (FP) PO SCH ×2 (09:48→21:24)
--- NOTE | 2017-11-29 11:44 | PN ---
Physical Exam: SUBJECTIVE: Patient seen and examined, reports Improvement of pressure to right second digit of foot, denies any tactile fever OBJECTIVE:67 year old female with PMHx of neuropathy, bilateral breast cancer ( 1992- L lumpectomy, radiation therapy; 2013 R mastectomy with implant), gastric sleeve 2016, cholecystectomy (age 22), tonsillectomy (age 9). Patient was admitted for emergency department for cellulitis of the right second digit Vital Signs Period Temp Pulse Resp BP Sys/Byers Pulse Ox Last 24 Hr 98.0 F-98.4 F 66-79 16-19 101-130/49-58 94-98 GENERAL: The patient is awake, alert, and fully oriented, in no acute distress. HEAD: Normal with no signs of trauma. EYES: PERRL, extraocular movements intact, sclera anicteric, conjunctiva clear. No ptosis. ENT: Ears normal, nares patent, oropharynx clear without exudates, moist mucous membranes. NECK: Trachea midline, full range of motion, supple. LUNGS: Breath sounds equal, clear to auscultation bilaterally, no wheezes, no crackles, no accessory muscle use. HEART: Regular rate and rhythm, S1, S2 without murmur, rub or gallop. ABDOMEN: Soft, nontender, nondistended, normoactive bowel sounds, no guarding, no rebound, no hepatosplenomegaly, no masses. EXTREMITIES: 2+ pulses, warm, well-perfused, no edema. rIGHT LOWER EXTREMITY: Right foot--> second digit, surgical dressing in place, no drainage noted NEUROLOGICAL: Cranial nerves II through XII grossly intact. Normal speech, gait not observed. PSYCH: Normal mood, normal affect. SKIN: Warm, dry, normal turgor, no rashes or lesions noted Laboratory Results - last 24 hr 11/28/17 11/29/17 13:05 07:35 WBC 5.4 RBC 3.47 L Hgb 11.2 Hct 33.1 MCV 95.3 MCH 32.4 MCHC 34.0 RDW 11.9 Plt Count 202 MPV 8.2 Absolute Neuts (auto) 3.7 Neutrophils % 66.8 Lymphocytes % 24.6 Monocytes % 5.7 Eosinophils % 2.4 Basophils % 0.5 ESR 104 H CMP Sodium 141 mmol/L (136-145) 11/28/17 07:35 Potassium 4.2 mmol/L (3.5-5.1) 11/28/17 07:35 Chloride 106 mmol/L (98-107) 11/28/17 07:35 Carbon Dioxide 30 mmol/L (22-28) H 11/28/17 07:35 Anion Gap 5 MMOL/L (8-16) L 11/28/17 07:35 BUN 9 mg/dl (7-18) 11/28/17 07:35 Creatinine 0.7 mg/dl (0.6-1.3) 11/28/17 07:35 Creat Clearance w eGFR > 60 (>60) 11/28/17 07:35 Random Glucose 84 mg/dl (74-106) 11/28/17 07:35 Calcium 8.7 mg/dl (8.4-10.2) 11/28/17 07:35 Phosphorus 3.9 mg/dl (2.5-4.6) 11/28/17 07:35 Magnesium 2.0 mg/dL (1.8-2.4) 11/28/17 07:35 Total Bilirubin 0.6 mg/dl (0.2-1.0) 11/26/17 06:00 AST 12 U/L (10-42) D 11/26/17 06:00 ALT 13 U/L (10-40) 11/26/17 06:00 Alkaline Phosphatase 53 U/L (32-92) 11/26/17 06:00 C-Reactive Protein 5.5 MG/DL (0.00-0.3) H 11/25/17 12:15 Total Protein 5.7 g/dl (6.4-8.3) L 11/26/17 06:00 Albumin 3.2 g/dl (3.5-5.0) L 11/26/17 06:00 Active Medications Generic Name Dose Route Start Last Admin Trade Name Freq PRN Reason Stop Dose Admin Acetaminophen 650 mg 11/25/17 20:33 11/28/17 07:58 Tylenol - PO 650 mg Q6H PRN Administration FEVER Docusate Sodium 100 mg 11/25/17 22:00 11/29/17 09:48 Colace - PO 100 mg BID MIKAEL Administration Heparin Sodium (Porcine) 5,000 unit 11/25/17 18:00 11/29/17 09:47 Heparin - SQ 5,000 unit Q8H-IV MIKAEL Administration Piperacillin Sod/Tazobactam Sod 3.375 gm in 50 mls @ 100 mls/hr 11/27/17 10: 00 11/29/17 09:48 Zosyn 3.375gm Ivpb (Pre-Docked) IVPB 100 mls/hr Q8H-IV MIKAEL Administration Protocol Vancomycin HCl 1,000 mg in 250 mls @ 166.667 mls/hr 11/27/17 12:30 11/29/17 00:42 Vancomycin (Pre-Docked) IVPB 166.667 mls/hr Q12H MIKAEL Administration Protocol Multivitamins/Minerals/Vitamin C 1 tab 11/26/17 10:00 11/29/17 09:48 Tab-A-Vit - PO 1 tab DAILY MIKAEL Administration Pramipexole Dihydrochloride 0.25 mg 11/25/17 22:00 11/29/17 09:48 Mirapex - PO 0.25 mg BID MIKAEL Administration Microbiology 11/28/17 12:00 Toe - Right Second Gram Stain - Final 11/25/17 12:30 Blood - Peripheral Venous Blood Culture - Preliminary NO GROWTH OBTAINED AFTER 72 HOURS, INCUBATION TO CONTINUE FOR 2 DAYS. 11/25/17 12:15 Blood - Peripheral Venous Blood Culture - Preliminary NO GROWTH OBTAINED AFTER 72 HOURS, INCUBATION TO CONTINUE FOR 2 DAYS. IMAGING MRI of lower extremity: Soft tissue edema of the foot extending into the second toe blistering on the lateral aspect of the mid to distal second toe and over the dorsal aspect of the distal phalanx, bone marrow edema the distal phalanx of the second toe consistent with osteomyelitis ASSESSMENT/PLAN: 1Osteomyelitis of right second digit of foot s/p I&D of right 2nd digit - Leukocytosis improved pt is afebrile - continue Vanco/ zosyn (11/26 -) - Blood cultures ntd, wound cultures prelim staph aureus - ID consulted and followed - podiatry consulted and followed 2. Hypotension - improved after IV fluids - close monitoring q4h 3. DVT ppx - Heparin 5,000u sq q8h - OOB ambulating Visit type - Emergency Visit Emergency Visit: Yes ED Registration Date: 11/25/17 Care time: The patient presented to the Emergency Department on the above date and was hospitalized for further evaluation of their emergent condition. - New Patient This patient is new to me today: No - Critical Care Critical Care patient: No - Discharge Referral Referred to [facility] Med P.C.: No
--- NOTE | 2017-11-29 16:18 | PATH ---
Surgical Pathology Report Patient Name: DUGLAS JOHNSON Med. Rec. #: [id number] /Age/Gender: 1950 (Age: 67) / F Account: [id number] Location: [facility] MED-SURG Taken: 11/28/2017 Received: 11/28/2017 Reported: 11/29/2017 Physicians: Luis Lora DPM Specimen(s) Received TISSUE OF Clinical History Right second toe infection Final Diagnosis SECOND TOE, RIGHT, DEBRIDEMENT: SUPERFICIAL FRAGMENTS OF SKIN WITH MARKED ACUTE INFLAMMATION. Electronically Signed Dee Krause M.D. Gross Description Received in formalin labeled with the patient's name and indicated on the requisition to be from the right second toe is a 2.5 x 1.5 x 0.1 cm aggregate of agee fragments of skin. Television Picture Tube Rebuilder sections are submitted in one cassette. /11/28/2017 [place]11/28/2017
[2017-11-30] MEDS: VANCOMYCIN 1 GRAM (PRE-DOCKED) 1,000 MG/250 ML BAG IVPB SCH (00:30)
[2017-11-30] MEDS: PIPERACILLIN/TAZOB 3.375 GM 3.375 GM/50 ML BAG IVPB SCH ×2 (02:00→09:04)
[2017-11-30] MEDS: HEPARIN NA (PORCINE) 5,000 UNITS/ML 1ML VIAL SQ SCH ×2 (02:00→09:04)
[2017-11-30] MEDS ORDERED: PICC LINE 8 ML FLUSH PROTOCOL IVPUSH PRN (07:44)
[2017-11-30] MEDS: MULTIVITAMINS (DAILY MVI) TABLET (FP) PO SCH (09:04)
[2017-11-30] MEDS: PRAMIPEXOLE DIHYDROCHLORIDE 0.25 MG TABLET PO SCH (09:04)
[2017-11-30] MEDS: DOCUSATE SODIUM 100 MG CAPSULE (FP) PO SCH (09:05)
--- NOTE | 2017-11-30 11:27 | PN ---
Progress Note, Physician History of Present Illness: Seen in IR dept S/P I&D R great toe fluid collection Wound c/s prelim MSSA No c/o foot pain ( peripheral neuropathy ) No fever/ chills Afebrile WBC WNL - Current Medication List Current Medications: Active Medications Acetaminophen (Tylenol -) 650 mg PO Q6H PRN PRN Reason: FEVER Last Admin: 11/28/17 07:58 Dose: 650 mg Docusate Sodium (Colace -) 100 mg PO BID MIKAEL Last Admin: 11/30/17 09:05 Dose: 100 mg Heparin Sodium (Porcine) (Heparin -) 5,000 unit SQ Q8H-IV MIKAEL Last Admin: 11/30/17 09:04 Dose: Not Given IV Flush (Picc Line Flush) 8 ml IVPUSH PRN PRN PRN Reason: Protocol Ceftriaxone Sodium (Ceftriaxone 2 Gm-D5w Bag) 2 gm in 50 mls @ 100 mls/hr IVPB DAILY MIKAEL; Protocol Multivitamins/Minerals/Vitamin C (Tab-A-Vit -) 1 tab PO DAILY MIKAEL Last Admin: 11/30/17 09:04 Dose: 1 tab Pramipexole Dihydrochloride (Mirapex -) 0.25 mg PO BID MIKAEL Last Admin: 11/30/17 09:04 Dose: 0.25 mg - Objective Vital Signs: Vital Signs Temperature 98.2 F 11/30/17 10:00 Pulse Rate 76 11/30/17 10:00 Respiratory Rate 18 11/30/17 10:00 Blood Pressure 124/49 11/30/17 10:00 O2 Sat by Pulse Oximetry (%) 100 11/30/17 10:00 Constitutional: Yes: No Distress Eyes: Yes: Conjunctiva Clear Cardiovascular: Yes: Regular Rate and Rhythm, S1, S2 Respiratory: Yes: CTA Bilaterally Gastrointestinal: Yes: Normal Bowel Sounds, Soft. No: Tenderness Extremities: Yes: Other (decreased swelling/ erythema R 2nd toe) Labs: CBC, BMP 11/28/17 13:05 11/28/17 07:35 Assessment/Plan Cellulitis R 2nd toe + osteomyelitis Peripheral neuropathy Substitute ceftriaxone 2gm IVPB q24h x 5w for tx of MSSA osteomyelitis
[2017-11-30] MEDS ORDERED: CEFTRIAXONE 2 GM/100 ML BAG IVPB SCH (11:30)
--- NOTE | 2017-11-30 12:58 | DS ---
Physical Exam: SUBJECTIVE: Patient seen and examined, patient resting comfortably in bed denies any tactile fever or pain reports improvement to the right second digit of the foot after incision and drainage, PICC line placed today at IR OBJECTIVE: This is a 67 year old female with PMHx of neuropathy, bilateral breast cancer ( 1992- L lumpectomy, radiation therapy; 2013 R mastectomy with implant), gastric sleeve 2016, cholecystectomy (age 22), tonsillectomy (age 9), who presented to the ED with right foot, 2nd digit redness and discoloration after cutting her nails. The patient reports she usually sees her planning aide to have her nails trimmed, but it had been a while so she decided to cut her own nails 2 weeks ago. She reports at the time it bled slightly and she put bacitracin on it. She states she continued the bacitracin and epsom salt soaks daily. She said about one week ago she noticed redness and swelling of her right foot, 2nd digit. She states yesterday she had chills and her temperature was 101.5. She denies any headache, weakness, dizziness, chest pain, palpitations, lower extremity edema. ER course was notable for: (1) Temp 98.1, pulse 68, BP 157/91, resp 18, O2 99% on RA (2) WBC 11.1 (3) Right foot X-ray: soft tissue swelling of second toe, a destructive process is not appreciated Vital Signs Period Temp Pulse Resp BP Sys/Byers Pulse Ox Last 24 Hr 98.2 F-98.9 F 57-76 16-19 95-124/41-49 94-100 PHYSICAL EXAM GENERAL: The patient is awake, alert, and fully oriented, in no acute distress. HEAD: Normal with no signs of trauma. EYES: PERRL, extraocular movements intact, sclera anicteric, conjunctiva clear. No ptosis. ENT: Ears normal, nares patent, oropharynx clear without exudates, moist mucous membranes. NECK: Trachea midline, full range of motion, supple. LUNGS: Breath sounds equal, clear to auscultation bilaterally, no wheezes, no crackles, no accessory muscle use. HEART: Regular rate and rhythm, S1, S2 without murmur, rub or gallop. ABDOMEN: Soft, nontender, nondistended, normoactive bowel sounds, no guarding, no rebound, no hepatosplenomegaly, no masses. EXTREMITIES: 2+ pulses, warm, well-perfused, no edema. rIGHT LOWER EXTREMITY: Right foot--> second digit, surgical dressing in place, no drainage noted NEUROLOGICAL: Cranial nerves II through XII grossly intact. Normal speech, gait not observed. PSYCH: Normal mood, normal affect. SKIN: Warm, dry, normal turgor, no rashes or lesions noted LABS CBC WBC 5.4 K/mm3 (4.0-10.8) 11/28/17 13:05 RBC 3.47 M/mm3 (3.60-5.2) L 11/28/17 13:05 Hgb 11.2 GM/dl (10.7-15.3) 11/28/17 13:05 Hct 33.1 % (32.4-45.2) 11/28/17 13:05 MCV 95.3 fl (80-96) 11/28/17 13:05 MCH 32.4 pg (25.7-33.7) 11/28/17 13:05 MCHC 34.0 g/dl (32.0-36.0) 11/28/17 13:05 RDW 11.9 % (11.6-15.6) 11/28/17 13:05 Plt Count 202 K/MM3 (134-434) 11/28/17 13:05 MPV 8.2 fl (7.5-11.1) 11/28/17 13:05 Absolute Neuts (auto) 3.7 K/mm3 11/28/17 13:05 Neutrophils % 66.8 % (42.8-82.8) 11/28/17 13:05 Lymphocytes % 24.6 % (8-40) 11/28/17 13:05 Monocytes % 5.7 % (3.8-10.2) 11/28/17 13:05 Eosinophils % 2.4 % (0-4.5) 11/28/17 13:05 Basophils % 0.5 % (0-2.0) 11/28/17 13:05 ESR 104 mm/hr (0-30) H 11/29/17 07:35 CMP Sodium 141 mmol/L (136-145) 11/28/17 07:35 Potassium 4.2 mmol/L (3.5-5.1) 11/28/17 07:35 Chloride 106 mmol/L (98-107) 11/28/17 07:35 Carbon Dioxide 30 mmol/L (22-28) H 11/28/17 07:35 Anion Gap 5 MMOL/L (8-16) L 11/28/17 07:35 BUN 9 mg/dl (7-18) 11/28/17 07:35 Creatinine 0.7 mg/dl (0.6-1.3) 11/28/17 07:35 Creat Clearance w eGFR > 60 (>60) 11/28/17 07:35 Random Glucose 84 mg/dl (74-106) 11/28/17 07:35 Calcium 8.7 mg/dl (8.4-10.2) 11/28/17 07:35 Phosphorus 3.9 mg/dl (2.5-4.6) 11/28/17 07:35 Magnesium 2.0 mg/dL (1.8-2.4) 11/28/17 07:35 Total Bilirubin 0.6 mg/dl (0.2-1.0) 11/26/17 06:00 AST 12 U/L (10-42) D 11/26/17 06:00 ALT 13 U/L (10-40) 11/26/17 06:00 Alkaline Phosphatase 53 U/L (32-92) 11/26/17 06:00 C-Reactive Protein 5.5 MG/DL (0.00-0.3) H 11/25/17 12:15 Total Protein 5.7 g/dl (6.4-8.3) L 11/26/17 06:00 Albumin 3.2 g/dl (3.5-5.0) L 11/26/17 06:00 Microbiology 11/25/17 12:30 Blood Culture - Final Blood - Peripheral Venous NO GROWTH AFTER 5 DAYS INCUBATION 11/25/17 12:15 Blood Culture - Final Blood - Peripheral Venous NO GROWTH AFTER 5 DAYS INCUBATION 11/28/17 12:00 Gram Stain - Final Toe - Right Second Wound Culture - Final Staphylococcus Aureus IMAGING MRI of lower extremity: Soft tissue edema of the foot extending into the second toe blistering on the lateral aspect of the mid to distal second toe and over the dorsal aspect of the distal phalanx, bone marrow edema the distal phalanx of the second toe consistent with osteomyelitis HOSPITAL COURSE: patient was admitted from the emergency department to the medical surgical floor for Osteomyelitis of right second digit of foot. planning aide's Dr. Stern was consulted, incision and drainage of second digit of the foot was performed on November 28 2017, by podiatry. Leukocytosis improved patient remained afebrile throughout admission. She was treated with vancomycin and zosyn (11/26 - 11/30) wound cultures is noted as above. patient was noted to have Hypotension during admission which resolved with IV fluids. PLAN - discharge home with vns - picc line placed 11/30/17, patient is to continue ceftriaxone daily for the next 5 weeks - dressing changes to right 2nd digit foot-->betadine dressing daily - follow up with podiatry within 5 days of Admission:11/25/17 Date of Discharge: 11/30/17 Minutes to complete discharge: 45 Discharge Summary Reason For Visit: RT 2ND TOE PAIN, SWELLING Current Active Problems Gangrene (Acute) Neuropathy (Acute) Osteomyelitis (Acute) Condition: Stable - Instructions Diet, Activity, Other Instructions: DAILY DRESSINGS TO RIGHT 2ND TOE-->BETADINE DRESSING, KEEP WOUND CLEAN AND DRY AT ALL TIMES CONTINUE ROCEPHIN (IV ANTIBIOTICS) THROUGH PICC LINE DAILY FOR THE NEXT 5 WEEKS CONTINUE ALL MEDICATIONS PRESCRIBED PLEASE FOLLOW UP WITH DR STERN (NODULIZER) WITHIN 1 WEEK PLEASE FOLLOW UP WITH DR PASCUAL (ID) NEXT WEEK IF ANY NEW OR PERSISTENT SYMPTOMS DEVELOP PLEASE RETURN TO THE EMERGENCY DEPARTMENT Referrals: Dmitriy Pascual MD [Staff Physician] - 1 Week Radha Krause MD [Primary Care Provider] - 2 Weeks Luis Lora DPM [Staff Physician] - 1 Week Disposition: VNS/HOME HEALTH CARE - Home Medications Comprehensive Discharge Medication List: Ambulatory Orders Pramipexole Dihydrochloride [Mirapex -] 0.25 mg PO BID 10/10/13 Aspirin [Aspirin EC] 81 mg PO DAILY 11/25/17 Cholecalciferol (Vitamin D3) [Vitamin D3 -] 3,000 unit PO DAILY 11/25/17 Multivitamin [One Daily] 1 each PO DAILY 11/25/17 This patient is new to me today: Yes Date on this admission: 12/01/17 Emergency Visit: No Critical Care patient: No - Discharge Referral [facility] Med [facility] No
--- NOTE | 2017-11-30 13:22 | PN ---
Progress Note (short form) - Note Progress Note: FUV. No pain vss +greatly improved 2nd toe, wbc improved, +improved cellulitis om cellulitis Discussed with VIDYA Bal. IVABX. HBO possibly. Daily betadine dressing changes. Follow up outpatient with me.
[2017-11-30 14:45] VITALS: BP 107/46; PULSE 70; TEMP 98.3
--- NOTE | 2017-11-30 16:47 | PATH ---
Cytology Non-Gynecological Report Patient Name: DUGLAS JOHNSON Med. Rec. #: [id number] /Age/Gender: 1950 (Age: 67) / F Account: [id number] Location: [facility] MED-SURG Taken: 11/28/2017 Received: 11/29/2017 Reported: 11/30/2017 Physicians: FELISA Capps M.D. Specimen(s) Received MISCELLANEOUS FLUID FROM RIGHT 2ND TOE I&D Clinical History Right second toe infection Final Diagnosis RIGHT SECOND TOE FLUID FOR CYTOLOGY: SATISFACTORY FOR EVALUATION. NEGATIVE FOR MALIGNANCY. NUMEROUS NEUTROPHILS AND SCATTERED SUPERFICIAL SQUAMOUS CELLS, SUGGESTIVE OF ABSCESS. Also see concurrent surgical report [id number]. Electronically Signed Dolly Alvarado M.D. Gross Description Approximately 2cc of bloody fluid received fresh. One cytofunnel and 1 block prepared.
== END 2017-11-30 15:35 | disposition home health service (06) | DRG 540 ==
LOC: FER 11:20 → FM/S 13:48
PROVIDERS: ADMIT Hospitalist; ATTEND Nurse Practitioner Family
PROC: 02HV33Z Insertion of Infusion Device into Superior Vena Cava, Percutaneous Approach (ICD-10-PCS; principal; 2017-11-28)
PROC: 0H9MXZX Drainage of Right Foot Skin, External Approach, Diagnostic (ICD-10-PCS; 2017-11-28)
DX: M86.9 Osteomyelitis, unspecified (principal); L03.115 Cellulitis of right lower limb; I96 Gangrene, not elsewhere classified; L02.611 Cutaneous abscess of right foot; I10 Essential (primary) hypertension; G62.9 Polyneuropathy, unspecified; D72.829 Elevated white blood cell count, unspecified; I95.9 Hypotension, unspecified; G25.81 Restless legs syndrome; Z85.3 Personal history of malignant neoplasm of breast; Z98.84 Bariatric surgery status
CPT/HCPCS: 36415; 36569; 71046-TC-FY; 73630-TC-RT-FY; 73718-TC; 77001-TC-FY; 80048; 80053; 83735; 84100; 85025; 85027; 85651; 86140; 87040; 87070; 87186; 87205; 88108; 88304-TC; 97116-GP; 97161-GP; 99283-25; C1751; J1644; J7030

== ENCOUNTER 2017-12-01 08:34 | Day surgery (SDC) | payer OTHER, MEDICARE ==
[2017-12-01] MEDS ORDERED: cefTRIAXone 2 GM/100 ML BAG (PRE-DOCKED) IVPB ONE (09:15)
[2017-12-01 09:20] VITALS: BP 120/66; PULSE 68; TEMP 98
== END 2017-12-01 10:20 | disposition home or self-care (01) ==
LOC: FINFUSION 08:34 → FM/S 08:37 → FINFUSION 10:20
PROVIDERS: ATTEND Internal Medicine
DX: M86.9 Osteomyelitis, unspecified (principal)
CPT/HCPCS: 96365

== ENCOUNTER 2017-12-02 08:06 | Day surgery (SDC) | payer OTHER, MEDICARE ==
[2017-12-02 08:22] VITALS: PULSE 72; TEMP 97.5
[2017-12-02] MEDS ORDERED: cefTRIAXone 2 GM/100 ML BAG (PRE-DOCKED) IVPB SCH (08:30)
[2017-12-02 08:50] VITALS: BP 100/54
== END 2017-12-02 08:53 | disposition home or self-care (01) ==
LOC: FINFUSION 08:06 → FM/S 08:06 → FINFUSION 08:53
PROVIDERS: ATTEND Internal Medicine
DX: M86.9 Osteomyelitis, unspecified (principal)
CPT/HCPCS: 96365

== ENCOUNTER 2017-12-03 09:23 | Day surgery (SDC) | payer OTHER, MEDICARE ==
[2017-12-03] MEDS ORDERED: cefTRIAXone 2 GM/100 ML BAG (PRE-DOCKED) IVPB ONE (10:00)
[2017-12-03 10:07] VITALS: BP 141/56; PULSE 61; TEMP 98; BMI 27.3
== END 2017-12-03 10:45 | disposition home or self-care (01) ==
LOC: FINFUSION 09:23 → FM/S 09:24 → FINFUSION 10:45
PROVIDERS: ATTEND Internal Medicine
DX: M86.9 Osteomyelitis, unspecified (principal)
CPT/HCPCS: 96365; 96366

== ENCOUNTER 2017-12-04 07:46 | Day surgery (SDC) | payer OTHER, MEDICARE ==
[2017-12-04] MEDS ORDERED: cefTRIAXone 2 GM/100 ML BAG (PRE-DOCKED) IVPB ONE (08:30)
[2017-12-04 10:29] VITALS: BP 144/57; PULSE 72; TEMP 97.6; BMI 27.3
== END 2017-12-04 10:10 | disposition home or self-care (01) ==
LOC: FINFUSION 07:46 → FM/S 07:51 → FINFUSION 10:10
PROVIDERS: ATTEND Internal Medicine
DX: M86.9 Osteomyelitis, unspecified (principal)
CPT/HCPCS: 96365

== ENCOUNTER 2017-12-05 07:30 | Day surgery (SDC) | payer OTHER, MEDICARE ==
[2017-12-05 07:52] VITALS: TEMP 97.7
[2017-12-05 08:15] VITALS: BP 130/60; PULSE 72
[2017-12-05] MEDS ORDERED: cefTRIAXone 2 GM/100 ML BAG (PRE-DOCKED) IVPB ONE (08:15)
[2017-12-05 08:16] LABS: HEMATOCRIT 33.3 % (32.4-45.2); HEMOGLOBIN 10.6 GM/dl (10.7-15.3); MCH 30.6 pg (25.7-33.7); MCHC 31.9 g/dl (32.0-36.0); MEAN PLT VOLUME 8.2 fl (7.5-11.1); PLATELET COUNT 211 K/MM3 (134-434); RBC 3.47 M/mm3 (3.60-5.2); RDW 12.3 % (11.6-15.6); WHITE BLOOD COUNT 5.6 K/mm3 (4.0-10.8)
[2017-12-05 08:37] LABS: ALBUMIN 3.2 g/dl (3.5-5.0); ALK PHOS 56 U/L (32-92); ANION GAP 6 MMOL/L (8-16); BILIRUBIN,TOTAL 0.6 mg/dl (0.2-1.0); BLOOD UREA NITROGEN 16 mg/dl (7-18); CALCIUM 8.5 mg/dl (8.4-10.2); CHLORIDE 106 mmol/L (98-107); CO2 27 mmol/L (22-28); CREATININE 0.7 mg/dl (0.6-1.3); GLUCOSE,RANDOM 130 mg/dl (74-106); POTASSIUM 3.1 mmol/L (3.5-5.1); SGOT/AST 18 U/L (10-42); SGPT/ALT 29 U/L (10-40); SODIUM 139 mmol/L (136-145); TOT PROT 6.3 g/dl (6.4-8.3)
[2017-12-05 09:05] LABS: ERYTHROCYTE SEDIMENTATION RATE 91 mm/hr (0-30)
== END 2017-12-05 08:16 | disposition home or self-care (01) ==
LOC: FINFUSION 07:30 → FM/S 07:30 → FINFUSION 08:16
PROVIDERS: ATTEND Internal Medicine
DX: M86.9 Osteomyelitis, unspecified (principal)
CPT/HCPCS: 36415; 80053; 85027; 85651; 86140; 96365

== ENCOUNTER 2017-12-06 07:39 | Day surgery (SDC) | payer OTHER, MEDICARE ==
[2017-12-06 07:57] VITALS: BP 111/65; PULSE 76; TEMP 98.3; BMI 27.3
[2017-12-06] MEDS ORDERED: cefTRIAXone 2 GM/100 ML BAG (PRE-DOCKED) IVPB ONE (08:30)
== END 2017-12-06 09:00 | disposition home or self-care (01) ==
LOC: FM/S 07:39 → FINFUSION 07:39
PROVIDERS: ATTEND Internal Medicine
DX: M86.9 Osteomyelitis, unspecified (principal)
CPT/HCPCS: 96365

== ENCOUNTER 2017-12-07 07:27 | Day surgery (SDC) | payer OTHER, MEDICARE ==
[2017-12-07] MEDS ORDERED: cefTRIAXone 2 GM/100 ML BAG (PRE-DOCKED) IVPB ONE (08:30)
[2017-12-07 09:16] VITALS: BP 132/52; PULSE 72; TEMP 97.9; BMI 27.3
== END 2017-12-07 11:00 | disposition home or self-care (01) ==
LOC: FINFUSION 07:27 → FM/S 07:28 → FINFUSION 11:00
PROVIDERS: ATTEND Internal Medicine
DX: M86.9 Osteomyelitis, unspecified (principal)
CPT/HCPCS: 96365

== ENCOUNTER 2017-12-08 07:45 | Day surgery (SDC) | payer OTHER, MEDICARE ==
[2017-12-08 08:09] VITALS: BP 108/49; PULSE 77; TEMP 97.5; BMI 27.3
[2017-12-08] MEDS ORDERED: cefTRIAXone 2 GM/100 ML BAG (PRE-DOCKED) IVPB ONE (08:30)
== END 2017-12-08 09:35 | disposition home or self-care (01) ==
LOC: FINFUSION 07:45 → FM/S 07:46 → FINFUSION 09:35
PROVIDERS: ATTEND Internal Medicine
DX: M86.9 Osteomyelitis, unspecified (principal)
CPT/HCPCS: 96365

== ENCOUNTER 2017-12-09 08:21 | Day surgery (SDC) | payer OTHER, MEDICARE ==
[2017-12-09] MEDS ORDERED: cefTRIAXone 2 GM/100 ML BAG (PRE-DOCKED) IVPB SCH (08:45)
[2017-12-09 08:57] VITALS: PULSE 63; TEMP 98
[2017-12-09 09:03] VITALS: BP 130/50
== END 2017-12-09 09:03 | disposition home or self-care (01) ==
LOC: FINFUSION 08:21 → FM/S 08:24 → FINFUSION 09:03
PROVIDERS: ATTEND Internal Medicine
DX: M86.9 Osteomyelitis, unspecified (principal)
CPT/HCPCS: 96365

== ENCOUNTER 2017-12-10 09:25 | Day surgery (SDC) | payer OTHER, MEDICARE ==
[2017-12-10] MEDS ORDERED: CEFTRIAXONE 2 GM-D5W BAG 2 GM/50 ML BAG IVPB ONE (09:42)
[2017-12-10 09:47] VITALS: BP 122/74; TEMP 98.3
[2017-12-10 10:28] VITALS: PULSE 62
== END 2017-12-10 10:20 | disposition home or self-care (01) ==
LOC: FINFUSION 09:25 → FM/S 09:28 → FINFUSION 10:20
PROVIDERS: ATTEND Internal Medicine
DX: M86.9 Osteomyelitis, unspecified (principal)
CPT/HCPCS: 96365

== ENCOUNTER 2017-12-11 07:31 | Day surgery (SDC) | payer OTHER, MEDICARE ==
[2017-12-11] MEDS ORDERED: cefTRIAXone 2 GM/100 ML BAG (PRE-DOCKED) IVPB ONE (08:00)
[2017-12-11 09:00] VITALS: BP 126/78; PULSE 68; TEMP 99
== END 2017-12-11 09:00 | disposition home or self-care (01) ==
LOC: FINFUSION 07:31 → FM/S 07:31 → FINFUSION 09:00
PROVIDERS: ATTEND Internal Medicine
DX: M86.9 Osteomyelitis, unspecified (principal)
CPT/HCPCS: 96365; 96366

== ENCOUNTER 2017-12-12 07:33 | Day surgery (SDC) | payer OTHER, MEDICARE ==
[2017-12-12] MEDS ORDERED: cefTRIAXone 2 GM/100 ML BAG (PRE-DOCKED) IVPB ONE (08:15)
[2017-12-12 08:26] VITALS: TEMP 98.5
[2017-12-12 08:29] VITALS: BP 122/52; PULSE 72
[2017-12-12 08:49] LABS: HEMOGLOBIN 10.8 GM/dl (10.7-15.3); MCH 30.3 pg (25.7-33.7); MCHC 31.6 g/dl (32.0-36.0); MEAN CELL VOLUME 95.7 fl (80-96); MEAN PLT VOLUME 7.9 fl (7.5-11.1); PLATELET COUNT 221 K/MM3 (134-434); RBC 3.55 M/mm3 (3.60-5.2); RDW 11.8 % (11.6-15.6); WHITE BLOOD COUNT 4.8 K/mm3 (4.0-10.8)
[2017-12-12 08:54] LABS: ALBUMIN 3.2 g/dl (3.5-5.0); ALK PHOS 56 U/L (32-92); ANION GAP 5 MMOL/L (8-16); BILIRUBIN,TOTAL 0.6 mg/dl (0.2-1.0); BLOOD UREA NITROGEN 16 mg/dl (7-18); CALCIUM 8.6 mg/dl (8.4-10.2); CHLORIDE 106 mmol/L (98-107); CO2 29 mmol/L (22-28); CREATININE 0.7 mg/dl (0.6-1.3); GLUCOSE,RANDOM 114 mg/dl (74-106); POTASSIUM 3.7 mmol/L (3.5-5.1); SGOT/AST 15 U/L (10-42); SGPT/ALT 17 U/L (10-40); SODIUM 140 mmol/L (136-145); TOT PROT 6.5 g/dl (6.4-8.3)
[2017-12-12 09:36] LABS: ERYTHROCYTE SEDIMENTATION RATE 96 mm/hr (0-30)
== END 2017-12-12 08:30 | disposition home or self-care (01) ==
LOC: FINFUSION 07:33 → FM/S 07:33 → FINFUSION 08:30
PROVIDERS: ATTEND Internal Medicine
DX: M86.9 Osteomyelitis, unspecified (principal)
CPT/HCPCS: 36415; 80053; 85027; 85651; 86140; 96365

== ENCOUNTER 2017-12-13 07:37 | Day surgery (SDC) | payer OTHER, MEDICARE ==
[2017-12-13] MEDS ORDERED: cefTRIAXone 2 GM/100 ML BAG (PRE-DOCKED) IVPB ONE (08:15)
[2017-12-13 08:51] VITALS: BP 118/58; PULSE 61; TEMP 97.8; BMI 27.3
== END 2017-12-13 09:00 | disposition home or self-care (01) ==
LOC: FINFUSION 07:37 → FM/S 07:37 → FINFUSION 09:00
PROVIDERS: ATTEND Internal Medicine
DX: M86.9 Osteomyelitis, unspecified (principal)
CPT/HCPCS: 96365

== ENCOUNTER 2017-12-14 07:22 | Day surgery (SDC) | payer OTHER, MEDICARE ==
[2017-12-14] MEDS ORDERED: cefTRIAXone 2 GM/100 ML BAG (PRE-DOCKED) IVPB ONE (08:15)
[2017-12-14 09:10] VITALS: BP 140/56; PULSE 76; TEMP 98.3; BMI 27.3
== END 2017-12-14 08:30 | disposition home or self-care (01) ==
LOC: FINFUSION 07:22 → FM/S 07:23 → FINFUSION 08:30
PROVIDERS: ATTEND Internal Medicine
DX: M86.9 Osteomyelitis, unspecified (principal)
CPT/HCPCS: 96365

== ENCOUNTER 2017-12-15 08:21 | Day surgery (SDC) | payer OTHER, MEDICARE ==
[2017-12-15 08:32] VITALS: BP 147/69; PULSE 73; TEMP 98; BMI 27.3
[2017-12-15] MEDS ORDERED: cefTRIAXone 2 GM/100 ML BAG (PRE-DOCKED) IVPB ONE (08:45)
== END 2017-12-15 09:30 | disposition home or self-care (01) ==
LOC: FINFUSION 08:21 → FM/S 08:21 → FINFUSION 09:30
PROVIDERS: ATTEND Internal Medicine
DX: M86.9 Osteomyelitis, unspecified (principal)
CPT/HCPCS: 96365

== ENCOUNTER 2017-12-16 08:11 | Day surgery (SDC) | payer OTHER, MEDICARE ==
[2017-12-16] MEDS ORDERED: CEFTRIAXONE 2 GM-D5W BAG 2 GM/50 ML BAG IVPB SCH (10:00)
[2017-12-16 10:46] VITALS: BP 110/62; PULSE 74; TEMP 98.2
== END 2017-12-16 10:00 | disposition home or self-care (01) ==
LOC: FINFUSION 08:11 → FM/S 08:15 → FINFUSION 10:00
PROVIDERS: ATTEND Internal Medicine
DX: M86.9 Osteomyelitis, unspecified (principal)
CPT/HCPCS: 96365; 96366

== ENCOUNTER 2017-12-17 09:05 | Day surgery (SDC) | payer OTHER, MEDICARE ==
[2017-12-17 09:38] VITALS: TEMP 98.2
[2017-12-17 09:43] VITALS: BP 108/72; PULSE 70
== END 2017-12-17 09:43 | disposition home or self-care (01) ==
LOC: FINFUSION 09:05 → FM/S 09:07 → FINFUSION 09:43
PROVIDERS: ATTEND Internal Medicine
DX: M86.9 Osteomyelitis, unspecified (principal)
CPT/HCPCS: 96365

== ENCOUNTER 2017-12-19 08:14 | Day surgery (SDC) | payer OTHER, MEDICARE ==
[2017-12-19 08:52] VITALS: TEMP 98
[2017-12-19] MEDS ORDERED: cefTRIAXone 2 GM/100 ML BAG (PRE-DOCKED) IVPB ONE (09:00)
[2017-12-19 09:21] LABS: HEMOGLOBIN 11.3 GM/dl (10.7-15.3); MCH 31.5 pg (25.7-33.7); MCHC 33.1 g/dl (32.0-36.0); MEAN CELL VOLUME 95.3 fl (80-96); MEAN PLT VOLUME 8.1 fl (7.5-11.1); PLATELET COUNT 197 K/MM3 (134-434); RBC 3.57 M/mm3 (3.60-5.2); RDW 12.2 % (11.6-15.6); WHITE BLOOD COUNT 5.1 K/mm3 (4.0-10.8)
[2017-12-19 09:25] LABS: ALBUMIN 3.2 g/dl (3.5-5.0); ALK PHOS 55 U/L (32-92); ANION GAP 1 MMOL/L (8-16); BILIRUBIN,TOTAL 0.6 mg/dl (0.2-1.0); BLOOD UREA NITROGEN 14 mg/dl (7-18); CALCIUM 8.3 mg/dl (8.4-10.2); CHLORIDE 108 mmol/L (98-107); CO2 26 mmol/L (22-28); CREATININE 0.7 mg/dl (0.6-1.3); GLUCOSE,RANDOM 96 mg/dl (74-106); POTASSIUM 3.4 mmol/L (3.5-5.1); SGOT/AST 17 U/L (10-42); SGPT/ALT 17 U/L (10-40); SODIUM 135 mmol/L (136-145); TOT PROT 6.7 g/dl (6.4-8.3)
[2017-12-19 09:51] VITALS: BP 105/62; PULSE 70
[2017-12-19 09:57] LABS: ERYTHROCYTE SEDIMENTATION RATE 78 mm/hr (0-30)
== END 2017-12-19 09:30 | disposition home or self-care (01) ==
LOC: FINFUSION 08:14 → FM/S 08:19 → FINFUSION 09:30
PROVIDERS: ATTEND Internal Medicine
DX: M86.9 Osteomyelitis, unspecified (principal)
CPT/HCPCS: 36415; 80053; 85027; 85651; 86140; 96365

== ENCOUNTER 2017-12-20 08:14 | Day surgery (SDC) | payer OTHER, MEDICARE ==
[2017-12-20 08:53] VITALS: TEMP 98
[2017-12-20] MEDS ORDERED: cefTRIAXone 2 GM/100 ML BAG (PRE-DOCKED) IVPB ONE (09:00)
[2017-12-20 10:54] VITALS: BP 93/48; PULSE 74
== END 2017-12-20 09:50 | disposition home or self-care (01) ==
LOC: FINFUSION 08:14 → FM/S 08:19 → FINFUSION 09:50
PROVIDERS: ATTEND Internal Medicine
DX: M86.9 Osteomyelitis, unspecified (principal)
CPT/HCPCS: 96365

== ENCOUNTER 2017-12-22 07:48 | Day surgery (SDC) | payer OTHER, MEDICARE ==
[2017-12-22] MEDS ORDERED: cefTRIAXone 2 GM/100 ML BAG (PRE-DOCKED) IVPB ONE (09:00)
[2017-12-22 11:06] VITALS: BP 100/48; PULSE 62; TEMP 97.6; BMI 26.6
== END 2017-12-22 09:30 | disposition home or self-care (01) ==
LOC: FINFUSION 07:48 → FM/S 07:49 → FINFUSION 09:30
PROVIDERS: ATTEND Internal Medicine
DX: M86.9 Osteomyelitis, unspecified (principal)
CPT/HCPCS: 96365

== ENCOUNTER 2017-12-23 08:21 | Day surgery (SDC) | payer OTHER, MEDICARE ==
[2017-12-23] MEDS ORDERED: cefTRIAXone 2 GM/100 ML BAG (PRE-DOCKED) IVPB SCH (08:45)
[2017-12-23 08:56] VITALS: TEMP 97.8
[2017-12-23 08:58] VITALS: BP 120/50; PULSE 76
== END 2017-12-23 08:59 | disposition home or self-care (01) ==
LOC: FINFUSION 08:21 → FM/S 08:30 → FINFUSION 08:59
PROVIDERS: ATTEND Internal Medicine
DX: M86.9 Osteomyelitis, unspecified (principal)
CPT/HCPCS: 96365

== ENCOUNTER 2017-12-24 09:21 | Day surgery (SDC) | payer OTHER, MEDICARE ==
[2017-12-24 10:00] VITALS: PULSE 72; TEMP 98.3
[2017-12-24 10:02] VITALS: BP 110/68
[2017-12-24] MEDS ORDERED: CEFTRIAXONE 2 GM-D5W BAG 2 GM/50 ML BAG IVPB ONE (10:03)
== END 2017-12-24 10:07 | disposition home or self-care (01) ==
LOC: FINFUSION 09:21 → FM/S 09:26 → FINFUSION 10:07
PROVIDERS: ATTEND Internal Medicine
DX: M86.9 Osteomyelitis, unspecified (principal)
CPT/HCPCS: 96365; 96366

== ENCOUNTER 2017-12-25 07:39 | Day surgery (SDC) | payer OTHER, MEDICARE ==
[2017-12-25] MEDS ORDERED: cefTRIAXone 2 GM/100 ML BAG (PRE-DOCKED) IVPB ONE (08:30)
== END 2017-12-25 09:02 | disposition home or self-care (01) ==
LOC: FINFUSION 07:39 → FM/S 07:46 → FINFUSION 09:02
PROVIDERS: ATTEND Internal Medicine
DX: M86.9 Osteomyelitis, unspecified (principal)
CPT/HCPCS: 96365

== ENCOUNTER 2017-12-26 08:03 | Day surgery (SDC) | payer OTHER, MEDICARE ==
[2017-12-26 08:59] VITALS: TEMP 97.7
[2017-12-26] MEDS ORDERED: cefTRIAXone 2 GM/100 ML BAG (PRE-DOCKED) IVPB ONE (09:00)
[2017-12-26 09:04] VITALS: BP 140/50; PULSE 61
[2017-12-26 09:39] LABS: ALBUMIN 3.4 g/dl (3.5-5.0); ALK PHOS 54 U/L (32-92); ANION GAP 5 MMOL/L (8-16); BILIRUBIN,TOTAL 0.4 mg/dl (0.2-1.0); BLOOD UREA NITROGEN 21 mg/dl (7-18); CALCIUM 8.7 mg/dl (8.4-10.2); CHLORIDE 105 mmol/L (98-107); CO2 29 mmol/L (22-28); GLUCOSE,RANDOM 88 mg/dl (74-106); POTASSIUM 3.7 mmol/L (3.5-5.1); SGOT/AST 17 U/L (10-42); SGPT/ALT 19 U/L (10-40); SODIUM 139 mmol/L (136-145); TOT PROT 6.3 g/dl (6.4-8.3)
[2017-12-26 09:40] LABS: CREATININE < 0.6 mg/dl (0.6-1.3)
[2017-12-26 09:44] LABS: HEMATOCRIT 33.6 % (32.4-45.2); HEMOGLOBIN 11.3 GM/dl (10.7-15.3); MCH 31.9 pg (25.7-33.7); MCHC 33.7 g/dl (32.0-36.0); MEAN CELL VOLUME 94.8 fl (80-96); MEAN PLT VOLUME 8.6 fl (7.5-11.1); PLATELET COUNT 190 K/MM3 (134-434); RBC 3.54 M/mm3 (3.60-5.2); RDW 12.1 % (11.6-15.6); WHITE BLOOD COUNT 4.3 K/mm3 (4.0-10.8)
[2017-12-26 10:42] LABS: ERYTHROCYTE SEDIMENTATION RATE 67 mm/hr (0-30)
== END 2017-12-26 09:06 | disposition home or self-care (01) ==
LOC: FINFUSION 08:03 → FM/S 08:03 → FINFUSION 09:06
PROVIDERS: ATTEND Internal Medicine
DX: M86.9 Osteomyelitis, unspecified (principal)
CPT/HCPCS: 36415; 80053; 85027; 85651; 86140; 96365

== ENCOUNTER 2017-12-27 07:35 | Day surgery (SDC) | payer OTHER, MEDICARE ==
[2017-12-27] MEDS ORDERED: cefTRIAXone 2 GM/100 ML BAG (PRE-DOCKED) IVPB ONE (08:15)
[2017-12-27 10:34] VITALS: BP 96/47; PULSE 63; TEMP 97.8
== END 2017-12-27 09:00 | disposition home or self-care (01) ==
LOC: FM/S 07:35 → FINFUSION 07:35
PROVIDERS: ATTEND Internal Medicine
DX: M86.9 Osteomyelitis, unspecified (principal)
CPT/HCPCS: 96365

== ENCOUNTER 2017-12-28 08:29 | Day surgery (SDC) | payer OTHER, MEDICARE ==
[2017-12-28 10:10] VITALS: BP 121/67; PULSE 66
[2017-12-28] MEDS ORDERED: CEFTRIAXONE 2 GM in DEXTROSE 5%-WATER 100 ML IVPB ONE (10:15)
[2017-12-28 14:48] VITALS: TEMP 97.2
== END 2017-12-28 10:11 | disposition home or self-care (01) ==
LOC: JINFUSION 08:29
PROVIDERS: ATTEND Internal Medicine
DX: M86.9 Osteomyelitis, unspecified (principal)
CPT/HCPCS: 11042; 15275; 96365; Q4172

== ENCOUNTER 2017-12-29 07:55 | Day surgery (SDC) | payer OTHER, MEDICARE ==
[2017-12-29] MEDS ORDERED: cefTRIAXone 2 GM/100 ML BAG (PRE-DOCKED) IVPB ONE (08:30)
== END 2017-12-29 09:20 | disposition home or self-care (01) ==
LOC: FINFUSION 07:55 → FM/S 08:03 → FINFUSION 09:20
PROVIDERS: ATTEND Internal Medicine
DX: M86.9 Osteomyelitis, unspecified (principal)
CPT/HCPCS: 96365

== ENCOUNTER 2017-12-30 08:07 | Day surgery (SDC) | payer OTHER, MEDICARE ==
[2017-12-30] MEDS ORDERED: cefTRIAXone 2 GM/100 ML BAG (PRE-DOCKED) IVPB SCH (08:30)
[2017-12-30 09:35] VITALS: BP 110/78; PULSE 70; TEMP 98
== END 2017-12-30 09:27 | disposition home or self-care (01) ==
LOC: FINFUSION 08:07 → FM/S 08:11 → FINFUSION 09:27
PROVIDERS: ATTEND Internal Medicine
DX: M86.9 Osteomyelitis, unspecified (principal)
CPT/HCPCS: 96365

== ENCOUNTER 2018-01-01 08:02 | Day surgery (SDC) | payer OTHER, MEDICARE ==
[2018-01-01] MEDS ORDERED: cefTRIAXone 2 GM/100 ML BAG (PRE-DOCKED) IVPB ONE (08:30)
[2018-01-01 08:39] VITALS: BMI 60.4
[2018-01-01 09:12] VITALS: BP 123/65; PULSE 62
== END 2018-01-01 09:34 | disposition home or self-care (01) ==
LOC: FINFUSION 08:02 → FM/S 08:03 → FINFUSION 09:34
PROVIDERS: ATTEND Internal Medicine
DX: M86.9 Osteomyelitis, unspecified (principal)
CPT/HCPCS: 96365

== ENCOUNTER 2018-01-02 08:05 | Day surgery (SDC) | payer OTHER, MEDICARE ==
[2018-01-02] MEDS ORDERED: cefTRIAXone 2 GM/100 ML BAG (PRE-DOCKED) IVPB ONE (08:45)
[2018-01-02 09:09] LABS: BASO % 0.6 % (0-2.0); EOS % 3.1 % (0-4.5); HEMATOCRIT 33.7 % (32.4-45.2); HEMOGLOBIN 11.2 GM/dl (10.7-15.3); MCH 31.5 pg (25.7-33.7); MCHC 33.2 g/dl (32.0-36.0); MEAN CELL VOLUME 94.9 fl (80-96); MEAN PLT VOLUME 8.3 fl (7.5-11.1); MONO % 7.1 % (3.8-10.2); NEUT % 65.2 % (42.8-82.8); PLATELET COUNT 174 K/MM3 (134-434); RBC 3.55 M/mm3 (3.60-5.2); RDW 12.3 % (11.6-15.6); WHITE BLOOD COUNT 4.6 K/mm3 (4.0-10.8)
[2018-01-02 09:18] LABS: ALBUMIN 3.3 g/dl (3.5-5.0); ALK PHOS 59 U/L (32-92); ANION GAP 3 MMOL/L (8-16); BILIRUBIN,TOTAL 0.4 mg/dl (0.2-1.0); BLOOD UREA NITROGEN 15 mg/dl (7-18); CALCIUM 8.4 mg/dl (8.4-10.2); CHLORIDE 108 mmol/L (98-107); CO2 27 mmol/L (22-28); CREATININE 0.6 mg/dl (0.6-1.3); GLUCOSE,RANDOM 106 mg/dl (74-106); POTASSIUM 3.7 mmol/L (3.5-5.1); SGOT/AST 19 U/L (10-42); SGPT/ALT 17 U/L (10-40); SODIUM 138 mmol/L (136-145)
[2018-01-02 10:23] VITALS: BP 108/62; PULSE 74; TEMP 98
[2018-01-02 10:30] LABS: ERYTHROCYTE SEDIMENTATION RATE 51 mm/hr (0-30)
== END 2018-01-02 09:30 | disposition home or self-care (01) ==
LOC: FINFUSION 08:05 → FM/S 08:06 → FINFUSION 09:30
PROVIDERS: ATTEND Internal Medicine
DX: M86.9 Osteomyelitis, unspecified (principal)
CPT/HCPCS: 36415; 80053; 85025; 85651; 86140; 96365

== ENCOUNTER 2018-01-03 07:55 | Day surgery (SDC) | payer OTHER, MEDICARE ==
[2018-01-03] MEDS ORDERED: cefTRIAXone 2 GM/100 ML BAG (PRE-DOCKED) IVPB ONE (08:40)
[2018-01-03 08:42] VITALS: BP 102/55; PULSE 66; TEMP 98.3; BMI 27.3
== END 2018-01-03 09:05 | disposition home or self-care (01) ==
LOC: FINFUSION 07:55 → FM/S 07:56 → FINFUSION 09:05
PROVIDERS: ATTEND Internal Medicine
DX: M86.9 Osteomyelitis, unspecified (principal)
CPT/HCPCS: 96365

== ENCOUNTER 2018-01-04 08:54 | Day surgery (SDC) | payer OTHER, MEDICARE ==
[2018-01-04] MEDS ORDERED: CEFTRIAXONE 2 GM in DEXTROSE 5%-WATER 100 ML IVPB ONE (09:16)
[2018-01-04] MEDS ORDERED: SODIUM CHLORIDE 100 ML IVPB ONE (09:17)
[2018-01-04 10:38] VITALS: BP 138/74; PULSE 66; TEMP 97.4
--- NOTE | 2018-01-04 20:36 | PN ---
Progress Note (short form) - Note Progress Note: FUV right 2nd toe. Getting abx IV. vsgi, +healed wound, long 2nd toe, -cellulitis Resolved wound Hammer toe osteomyelitis PTR to private practice for foot care and scheduling for sx. Call if any problems or questions.
== END 2018-01-04 10:02 | disposition home or self-care (01) ==
LOC: JINFUSION 08:54 → EDSTATUS 09:30 → JINFUSION 10:02
PROVIDERS: ATTEND Internal Medicine
DX: M86.9 Osteomyelitis, unspecified (principal)
CPT/HCPCS: 96365; G0463-25

== ENCOUNTER 2018-01-05 07:56 | Day surgery (SDC) | payer OTHER, MEDICARE ==
[2018-01-05 08:19] VITALS: BP 113/59; PULSE 64; TEMP 98.2; BMI 27.3
[2018-01-05] MEDS ORDERED: cefTRIAXone 2 GM/100 ML BAG (PRE-DOCKED) IVPB ONE (08:30)
== END 2018-01-05 09:15 | disposition home or self-care (01) ==
LOC: FINFUSION 07:56 → FM/S 07:59 → FINFUSION 09:15
PROVIDERS: ATTEND Internal Medicine
DX: M86.9 Osteomyelitis, unspecified (principal)
CPT/HCPCS: 96365

== ENCOUNTER 2018-01-06 08:09 | Day surgery (SDC) | payer OTHER, MEDICARE ==
[2018-01-06 08:39] VITALS: TEMP 97.5
[2018-01-06] MEDS ORDERED: cefTRIAXone 2 GM/100 ML BAG (PRE-DOCKED) IVPB SCH ×3 (08:45→10:00)
[2018-01-06 08:53] VITALS: BP 120/58; PULSE 74
== END 2018-01-06 08:50 | disposition home or self-care (01) ==
LOC: FINFUSION 08:09 → FM/S 08:09 → FINFUSION 08:50
PROVIDERS: ATTEND Internal Medicine
DX: M86.9 Osteomyelitis, unspecified (principal)
CPT/HCPCS: 96365

== ENCOUNTER 2018-01-07 08:23 | Day surgery (SDC) | payer OTHER, MEDICARE ==
[2018-01-07 08:59] VITALS: BMI 27.3
[2018-01-07] MEDS ORDERED: cefTRIAXone 2 GM/100 ML BAG (PRE-DOCKED) IVPB ONE (09:00)
[2018-01-07 09:10] VITALS: BP 100/54; PULSE 66; TEMP 98.6
== END 2018-01-07 09:50 | disposition home or self-care (01) ==
LOC: FINFUSION 08:23 → FM/S 08:28 → FINFUSION 08:28 → EDSTATUS 09:18 → FM/S 09:50 → FINFUSION 09:50
PROVIDERS: ATTEND Internal Medicine
DX: M86.9 Osteomyelitis, unspecified (principal)
CPT/HCPCS: 96365

== ENCOUNTER 2019-05-03 06:17 | Day surgery (SDC) | payer OTHER, MEDICARE ==
[2019-05-02 13:20] VITALS: BMI 29.0
[2019-05-03] MEDS ORDERED: LIDOCAINE HCL 1%, 10 MG/ML (20ML VIAL) ONE (07:07)
[2019-05-03] MEDS ORDERED: DEXAMETHASONE SOD PHOSPHATE 4 MG/1 ML VIAL ONE ×2 (07:18→08:13)
[2019-05-03] MEDS ORDERED: BENZOIN/ALOE VERA/STORAX/TOLU 58 ML BOTTLE ONE (07:18)
[2019-05-03] MEDS ORDERED: MIDAZOLAM HCL 2 MG/2 ML SINGLE DOSE VIAL ONE (07:53)
[2019-05-03] MEDS ORDERED: LIDOCAINE HCL/PF 2% SDV 5ML VIAL ONE (07:53)
[2019-05-03] MEDS ORDERED: ceFAZolin SODIUM 1 GM VIAL ONE ×2 (07:53→09:29)
[2019-05-03] MEDS ORDERED: PROPOFOL 20 ML ONE ×3 (07:53→09:15)
[2019-05-03] MEDS ORDERED: BUPIVACAINE HCL/PF 0.5% (5 MG/ML) 30 ML VIAL IJ ONE ×2 (07:59→09:19)
[2019-05-03] MEDS ORDERED: LIDOCAINE HCL 1%, 10 MG/ML (20ML VIAL) PNB ONE (07:59)
[2019-05-03] MEDS ORDERED: KETOROLAC TROMETHAMINE 30 MG/1 ML VIAL ONE (08:05)
[2019-05-03] MEDS ORDERED: BACITRACIN 50,000 UNITS VIAL TP ONE (09:01)
[2019-05-03] MEDS ORDERED: ceFAZolin SODIUM 1 GM VIAL IVPB ONE (09:18)
[2019-05-03] MEDS ORDERED: DEXAMETHASONE SOD PHOSPHATE 4 MG/1 ML VIAL NR ONE (09:19)
--- NOTE | 2019-05-03 09:52 | OP ---
Operative Note - Note: Operative Date: 05/03/19 Pre-Operative Diagnosis: Hallux valgus right, HT 2&5 right, Tailors bunion right. Operation: Yfn bunionectomy right with 2.4mm x 18mm screws. Arthroplasty 2& 5 right. Tailors bunion right Findings: Hypertrophic bone and skin. Gouty crystals in 1st mpj right. Post-Operative Diagnosis: Same as Pre-op Surgeon: Luis Lora Breast Trimmer: Bucky Eastman ([facility] resident) Anesthesia: Local, MAC Estimated Blood Loss (mls): 10 Operative Report Dictated: No
[2019-05-03 12:18] VITALS: BP 141/73; PULSE 72; TEMP 97.8
--- NOTE | 2019-05-06 16:09 | PATH ---
Surgical Pathology Report Patient Name: DUGLAS JOHNSON Med. Rec. #: [id number] /Age/Gender: 1950 (Age: 69) / F Account: [id number] Location: [facility] SURGICAL Taken: 05/03/2019 Received: 05/03/2019 Reported: 05/06/2019 Physicians: Luis Lora DPM Specimen(s) Received BONE AND SKIN RIGHT Clinical History Hammertoe second digit right foot Final Diagnosis BONE AND SKIN, FOOT, RIGHT, OZIEL BUNIONECTOMY: BONE WITH FATTY MARROW. SKIN WITHOUT SIGNIFICANT PATHOLOGIC FINDINGS. Electronically Signed Dee Krause M.D. Gross Description Received in formalin labeled "bone and skin right foot," is a 3.7 x 3.0 x 0.4 cm aggregate of agee bone, soft tissue and skin fragments. Telecommunications Analyst sections are submitted in one cassette, following decalcification. /05/03/2019 [facility]05/03/2019
--- NOTE | 2019-05-07 10:37 | OP ---
DATE OF OPERATION: 05/03/2019 PREOPERATIVE DIAGNOSIS: Right foot hallux abductovalgus and right hammertoes digits 2 and 5. Tailors bunion right foot. POSTOPERATIVE DIAGNOSIS: Same as pre op PROCEDURE: Right foot Yfn bunionectomy with 2.4 mm screw fisxation x 2. Arthroplasty PIPJ 2nd and 5th toes right. Partial Metatarsal head resection 5th metatarsal head right. ANESTHESIA: MAC with local. HEMOSTASIS: Ankle tourniquet. ESTIMATED BLOOD LOSS: Less than 5 mL. DESCRIPTION OF PROCEDURE: After proper verbal and written consent was obtained , the patient was brought into the operating room and placed in a supine position on the operating room table. IV sedation was then administered by the anesthesia team, a local infiltrate block was administered to the right foot utilizing a 1-to-1 mix of 1% lidocaine plain and 0.5% Marcaine plain in a Cantu block fashion proximal to the 1st MTPJ and 2nd and 5th Metatarsophalangeal joints with a total of 20 mL being utilized. The right foot was then prepped and draped in the usual sterile technique. Prior to the prep and drape the ankle of the surgical foot was well padded using an adequate amount of webril and the tourniquet was then placed. Thereafter the ankle tourniquet was inflated to 250 mmHg. Attention was then directed to the dorsal aspect of the right foot , where an approximate 6cm curvo-linear incision was made over the 1st MPJ. The incision was made using a 15-blade following the previously drawn incision line. The incision was deepened through blunt and sharp dissection. All unavoidable vessels were ligated all other neurovascular structures were retracted out of surgical site. At this time an inverted L-Incison was created on the medial aspect of the 1st mpj. A dorsal-medial prominence over the 1st metatarsal head was noted to be the enlarged, was then resected using sagittal saw and then the specimen was sent to pathology. The foot was then placed on it's side. Utilizing a sagittal saw, an Yfn osteotomy was performed. The capital fragment was moved laterally 5mm to allow for proper reduction of IM angle. Temporary fixation was put in to place utilizing .062 inch kwire. At this time , 2 screws 2.4mm x 18mm were put in place using strict AO technique allowing for fixation. The toe was put through a range of motion and had excellent ROM and alignment. The remaining medial edge was resected using the sagittal saw and a tashi was utilized to re-model the head. The wound was closed in layers utilizing 2.0, 3.0 vicryl for capsular closure, 4.0 vicryl for subcutaneous closure. 5.0 Vicryl for subcuticular closure of skin. Tincture of benzoin and ster-strips were utilized on wound. Attention was then directed to the 2nd digit, where a 3cm 2 converging semi- elliptical incision was created. A wedge of skin was removed and sent down to pathology. Incision was then deepened through the subcutaneous tissue with care to retract all neurovascular structures. All unavoidable vessels were cauterized. All other neuro vascular structures were retracted out of surgical site. A transverse tenotomy was performed at the proximal interphalangeal joint to the 2nd digit of the right foot. The head of the proximal phalanx was freed of its soft tissue attachment. A Sagittal saw was used to resect the distal 1/3 of the proximal phalanx head and was then passed from the operating table for pathology. A angulated cut was made on the medial distal remaining portion of the phalanx utilizing a sagittal. The wound was then flushed with copious amounts of antibiotic infused sterile saline. The extensor tendon was reapproximated with 3-0 Vicryl in a simple interrupted suture fashio. The skin was reapproximated with 4.0 nylon in a simple interrupted suture fashion. Attention was then directed to the 5th digit where a 3cm 2 converging semi- elliptical incision was created. A wedge of skin was removed and sent down to pathology. Incision was then deepened through the subcutaneous tissue with care to retract all neurovascular structures. All unavoidable vessels were cauterized. All other neuro vascular structures were retracted out of surgical site. A transverse tenotomy was performed at the proximal interphalangeal joint to the 2nd digit of the right foot. The head of the proximal phalanx was freed of its soft tissue attachment. A Sagittal saw was used to resect the distal 1/3 of the proximal phalanx head and was then passed from the operating table for pathology. The wound was then flushed with copious amounts of antibiotic infused sterile saline. The extensor tendon was reapproximated with 3-0 Vicryl , skin was reapproximated with 4.0 nylon. Attention was then directed to the 5th metatarsal phalangeal joint. A linear incision was made 4cm in length. Incision was deepened using sharp dissection to the capsule. All unavoidable vessels were cauterized. All other neuro vascular structures were retracted out of surgical site. A linear incision was made in the dorsal capsule. The dorsal and lateral 5th met head were exposed. Utilizing a sagittal saw the dorsal lateral eminence was resected. A tashi was used to remodel the remaining metatarsal head. he wound was then flushed with copious amounts of antibiotic infused sterile saline. Capsular closure was achieved with 3.0 vicryl. 4.0 vicryl for subcutaneous closure. 5.0 Vicryl for subcuticular closure with tincture of benzoin and steri-strips. Betadine soaked adaptic, dry sterile gauze and monserrat dressing were applied. Tourniquette was deflated and capillary filling was instantaneous on the right foot. Pt tolerated anesthesia and procedure well. Pt returned to the recovery room neuro-vascular status intact. FELISA Capps/[id number] [place]
== END 2019-05-03 12:05 | disposition home or self-care (01) ==
LOC: JASU-SURG 06:17
PROVIDERS: ATTEND Podiatrist Foot Surgery
PROC: 0SRP0JZ Replacement of Right Toe Phalangeal Joint with Synthetic Substitute, Open Approach (ICD-10-PCS; 2019-05-03)
PROC: 0QSN04Z Reposition Right Metatarsal with Internal Fixation Device, Open Approach (ICD-10-PCS; principal; 2019-05-03 07:30)
DX: M20.11 Hallux valgus (acquired), right foot (principal); M21.611 Bunion of right foot; M20.41 Other hammer toe(s) (acquired), right foot
CPT/HCPCS: 73630-TC-RT-FY; 88304-TC; 88311-TC; 97116-GP

== ENCOUNTER 2020-03-15 11:35 | Inpatient (IN) | payer OTHER, MEDICARE ==
[2020-03-15] MEDS ORDERED: ACETAMINOPHEN 325 MG TABLET (FP) PO ONE (12:06)
[2020-03-15] MEDS ORDERED: ACETAMINOPHEN 325 MG TABLET (FP) ONE (12:23)
[2020-03-15] MEDS ORDERED: DEXAMETHASONE SOD PHOSPHATE 4 MG/1 ML VIAL IVPUSH ONE (12:26)
[2020-03-15] MEDS ORDERED: DEXAMETHASONE SOD PHOSPHATE 10 MG/1 ML VIAL ONE (12:40)
[2020-03-15 12:51] LABS: BASO % 0.5 % (0-2.0); EOS % 0.1 % (0-4.5); HEMATOCRIT 40.6 % (32.4-45.2); HEMOGLOBIN 13.4 GM/dl (10.7-15.3); LYMPH % 11.3 % (8-40); MCH 32.4 pg (25.7-33.7); MCHC 33.1 g/dl (32.0-36.0); MEAN CELL VOLUME 97.9 fl (80-96); MEAN PLT VOLUME 8.6 fl (7.5-11.1); MONO % 5.6 % (3.8-10.2); NEUT % 82.5 % (42.8-82.8); PLATELET COUNT 188 K/MM3 (134-434); RBC 4.15 M/mm3 (3.60-5.2); RDW 11.6 % (11.6-15.6); WHITE BLOOD COUNT 5.3 K/mm3 (4.0-10.8)
[2020-03-15 13:00] LABS: ACTIVATED PTT 25.2 SECONDS (25.2-36.5)
[2020-03-15 13:04] LABS: INR 1.52 (0.82-1.09); PROTHROMBIN TIME (PATIENT) 16.6 SEC (10.2-13.0)
[2020-03-15 13:20] LABS: ALBUMIN 3.3 g/dl (3.4-5.0); BILIRUBIN,TOTAL 0.8 mg/dl (0.2-1); CALCIUM 8.5 mg/dl (8.5-10); CREATININE 0.7 mg/dl (0.55-1.3); TOT PROT 6.3 g/dl (6.4-8.2)
[2020-03-15] MEDS ORDERED: SODIUM CHLORIDE 1,000 ML IV SCH (13:30)
[2020-03-15 14:10] LABS: VENOUS BASE EXCESS 2.4 mmol/L (-2-2); VENOUS O2 SATURATION 71.6 % (70-80); VENOUS PCO2 47.6 mmHg (38-52); VENOUS PH 7.388 (7.310-7.410)
[2020-03-15 14:31] LABS: BILIRUBIN,DIRECT 0.1 mg/dL (0.0-0.2)
[2020-03-15] MEDS: ASCORBIC ACID 500 MG TABLET (FP) PO SCH (18:00)
[2020-03-15] MEDS: SODIUM CHLORIDE 1,000 ML IV SCH (22:00)
[2020-03-15] MEDS: PRAMIPEXOLE DIHYDROCHLORIDE 0.5 MG TABLET PO SCH (22:48)
[2020-03-15 23:30] VITALS: BMI 30.2
[2020-03-16 03:33] LABS: EPI CELLS 15 /uL (0-25.1); HYALINE CASTS 5 /uL (0-3.1); PH,URINE 5.5 (5.0-8.0); URINE APPEARANCE CLEAR; URINE BACTERIA 41 /uL (0-1359); URINE BILIRUBIN NEGATIVE (NEGATIVE); URINE COLOR YELLOW; URINE GLUCOSE (UA) 2+ (NEGATIVE); URINE KETONE NEGATIVE (NEGATIVE); URINE LEUK ESTERASE NEGATIVE (NEGATIVE); URINE NITRITE NEGATIVE (NEGATIVE); URINE PROTEIN 1+ (NEGATIVE); URINE RBC 19 /uL (0-23.9); URINE WBC 11 /uL (0-25.8)
[2020-03-16] MEDS ORDERED: guaiFENesin 200 MG/10 ML 10 ML UNIT-DOSE CUPS PO PRN (04:34)
[2020-03-16 09:02] LABS: HEMATOCRIT 34.7 % (32.4-45.2); HEMOGLOBIN 11.9 GM/dL (10.7-15.3); MCH 32.5 pg (25.7-33.7); MCHC 34.2 g/dl (32.0-36.0); MEAN PLT VOLUME 8.5 fl (7.5-11.1); PLATELET COUNT 156 K/MM3 (134-434); RBC 3.65 M/mm3 (3.60-5.2); RDW 12.1 % (11.6-15.6); WHITE BLOOD COUNT 3.3 K/mm3 (4.0-10.0)
[2020-03-16 09:06] LABS: CALCIUM 8.3 mg/dL (8.5-10.1)
[2020-03-16 09:07] LABS: ALBUMIN 2.7 g/dl (3.4-5.0); BLOOD UREA NITROGEN 16.7 mg/dL (7-18)
[2020-03-16 09:08] LABS: CREATININE 0.5 mg/dL (0.55-1.3)
[2020-03-16 09:09] LABS: BILIRUBIN,TOTAL 0.8 mg/dL (0.2-1)
[2020-03-16 09:10] LABS: TOT PROT 5.7 g/dl (6.4-8.2)
[2020-03-16] MEDS: ENOXAPARIN NA (PORCINE) 40 MG/0.4 ML DISP.SYRIN SQ SCH (09:58)
[2020-03-16] MEDS: ZINC SULFATE 220 MG CAPSULE (FP) PO SCH (09:58)
[2020-03-16] MEDS: ACETAMINOPHEN 325 MG TABLET (FP) PO PRN (09:58)
[2020-03-16] MEDS ORDERED: DEXAMETHASONE SOD PHOSPHATE 4 MG/1 ML VIAL IVPUSH SCH (10:00)
[2020-03-16] MEDS: SODIUM CHLORIDE 1,000 ML IV SCH ×2 (10:09→15:32)
[2020-03-16] MEDS: PRAMIPEXOLE DIHYDROCHLORIDE 0.5 MG TABLET PO SCH ×2 (14:13→21:38)
[2020-03-16] MEDS: ASCORBIC ACID 500 MG TABLET (FP) PO SCH (15:32)
[2020-03-16] MEDS ORDERED: oxyCODONE HCL 5 MG TABLET PO ONE (15:45)
[2020-03-16] MEDS ORDERED: ACETAMINOPHEN 325 MG TABLET (FP) PO ONE (15:45)
[2020-03-16] MEDS ORDERED: REMDESIVIR 200 MG in SODIUM CHLORIDE 210 ML IVPB ONE (16:00)
[2020-03-17] MEDS ORDERED: DEXAMETHASONE SOD PHOSPHATE 10 MG/1 ML VIAL IVPUSH SCH (03:00)
[2020-03-17 08:26] LABS: BASO % 0.2 % (0-2.0); HEMATOCRIT 33.6 % (32.4-45.2); HEMOGLOBIN 11.5 GM/dL (10.7-15.3); LYMPH % 19.4 % (8-40); MCH 32.9 pg (25.7-33.7); MCHC 34.3 g/dl (32.0-36.0); MEAN CELL VOLUME 95.8 fl (80-96); MEAN PLT VOLUME 8.7 fl (7.5-11.1); MONO % 7.6 % (3.8-10.2); NEUT % 72.8 % (42.8-82.8); PLATELET COUNT 179 K/MM3 (134-434); RBC 3.51 M/mm3 (3.60-5.2); RDW 12.1 % (11.6-15.6); WHITE BLOOD COUNT 4.6 K/mm3 (4.0-10.0)
[2020-03-17] MEDS: PRAMIPEXOLE DIHYDROCHLORIDE 0.5 MG TABLET PO SCH ×2 (10:03→21:47)
[2020-03-17] MEDS: ASCORBIC ACID 500 MG TABLET (FP) PO SCH (10:04)
[2020-03-17] MEDS: ENOXAPARIN NA (PORCINE) 40 MG/0.4 ML DISP.SYRIN SQ SCH (10:04)
[2020-03-17] MEDS: ZINC SULFATE 220 MG CAPSULE (FP) PO SCH (10:04)
[2020-03-17] MEDS: SODIUM CHLORIDE 1,000 ML IV SCH (10:05)
[2020-03-17] MEDS: DEXAMETHASONE SOD PHOSPHATE 4 MG/1 ML VIAL IVPUSH SCH (13:37)
[2020-03-17] MEDS: REMDESIVIR 100 MG in SODIUM CHLORIDE 230 ML IVPB SCH (17:06)
[2020-03-17] MEDS: PANTOPRAZOLE 40 MG TABLET PO SCH (17:15)
[2020-03-17] MEDS: ACETAMINOPHEN 325 MG TABLET (FP) PO PRN (21:53)
[2020-03-18] MEDS: ACETAMINOPHEN 325 MG TABLET (FP) PO PRN ×4 (03:58→23:09)
[2020-03-18] MEDS: PRAMIPEXOLE DIHYDROCHLORIDE 0.5 MG TABLET PO SCH ×3 (05:53→23:10)
[2020-03-18 08:48] LABS: HEMOGLOBIN 10.9 GM/dL (10.7-15.3); MCH 32.4 pg (25.7-33.7); MCHC 34.2 g/dl (32.0-36.0); MEAN CELL VOLUME 94.9 fl (80-96); MEAN PLT VOLUME 8.5 fl (7.5-11.1); PLATELET COUNT 199 K/MM3 (134-434); RBC 3.37 M/mm3 (3.60-5.2); RDW 12.3 % (11.6-15.6); WHITE BLOOD COUNT 4.2 K/mm3 (4.0-10.0)
[2020-03-18 09:00] LABS: BLOOD UREA NITROGEN 13.2 mg/dL (7-18); CALCIUM 8.3 mg/dL (8.5-10.1)
[2020-03-18 09:03] LABS: CREATININE 0.5 mg/dL (0.55-1.3)
[2020-03-18] MEDS: ASCORBIC ACID 500 MG TABLET (FP) PO SCH (09:49)
[2020-03-18] MEDS: ENOXAPARIN NA (PORCINE) 40 MG/0.4 ML DISP.SYRIN SQ SCH (09:50)
[2020-03-18] MEDS: CHOLECALCIFEROL (VIT D3) 1,000 UNIT (25 MCG) TABLET PO SCH (09:50)
[2020-03-18] MEDS: PANTOPRAZOLE 40 MG TABLET PO SCH (09:51)
[2020-03-18] MEDS: DEXAMETHASONE SOD PHOSPHATE 4 MG/1 ML VIAL IVPUSH SCH (09:51)
[2020-03-18] MEDS: ZINC SULFATE 220 MG CAPSULE (FP) PO SCH (09:51)
[2020-03-18] MEDS ORDERED: POTASSIUM CHLORIDE TABS 20 MEQ TABLET.ER (FP) PO ONE ×2 (11:45→17:00)
[2020-03-18] MEDS: REMDESIVIR 100 MG in SODIUM CHLORIDE 230 ML IVPB SCH (17:17)
[2020-03-19] MEDS: PRAMIPEXOLE DIHYDROCHLORIDE 0.5 MG TABLET PO SCH ×3 (06:54→22:45)
[2020-03-19 08:38] LABS: BASO % 0.2 % (0-2.0); EOS % 0.1 % (0-4.5); HEMATOCRIT 37.6 % (32.4-45.2); LYMPH % 28.7 % (8-40); MCH 32.4 pg (25.7-33.7); MCHC 34.5 g/dl (32.0-36.0); MONO % 9.1 % (3.8-10.2); NEUT % 61.9 % (42.8-82.8); PLATELET COUNT 259 K/MM3 (134-434); RDW 12.2 % (11.6-15.6); WHITE BLOOD COUNT 5.7 K/mm3 (4.0-10.0)
[2020-03-19 08:52] LABS: ALBUMIN 3.2 g/dl (3.4-5.0); CALCIUM 8.7 mg/dL (8.5-10.1)
[2020-03-19 08:53] LABS: BLOOD UREA NITROGEN 14.9 mg/dL (7-18); MAGNESIUM 1.9 mg/dL (1.8-2.4)
[2020-03-19 08:56] LABS: PHOSPHOROUS 3.2 mg/dL (2.5-4.9)
[2020-03-19 08:57] LABS: BILIRUBIN,TOTAL 1.1 mg/dL (0.2-1); CREATININE 0.6 mg/dL (0.55-1.3); TOT PROT 6.7 g/dl (6.4-8.2)
[2020-03-19] MEDS: ZINC SULFATE 220 MG CAPSULE (FP) PO SCH (09:41)
[2020-03-19] MEDS: CHOLECALCIFEROL (VIT D3) 1,000 UNIT (25 MCG) TABLET PO SCH (09:41)
[2020-03-19] MEDS: PANTOPRAZOLE 40 MG TABLET PO SCH (09:42)
[2020-03-19] MEDS: ASCORBIC ACID 500 MG TABLET (FP) PO SCH (09:42)
[2020-03-19] MEDS: ENOXAPARIN NA (PORCINE) 40 MG/0.4 ML DISP.SYRIN SQ SCH (09:42)
[2020-03-19] MEDS: DEXAMETHASONE SOD PHOSPHATE 4 MG/1 ML VIAL IVPUSH SCH (09:43)
[2020-03-19] MEDS: ACETAMINOPHEN 325 MG TABLET (FP) PO PRN (10:56)
[2020-03-19] MEDS ORDERED: INSULIN SLIDING SCALE (NOVOLOG) 1 VIAL SQ ONE (11:48)
[2020-03-19] MEDS: amLODIPine BESYLATE 5 MG TABLET (FP) PO SCH (15:25)
[2020-03-19] MEDS: FERROUS SO4 325 MG TABLET (FP) PO SCH ×2 (15:25→22:45)
[2020-03-19] MEDS: REMDESIVIR 100 MG in SODIUM CHLORIDE 230 ML IVPB SCH (17:28)
[2020-03-19] MEDS ORDERED: IBUPROFEN 400 MG TABLET (FP) PO ONE (22:10)
[2020-03-19] MEDS ORDERED: ACETAMINOPHEN 325 MG TABLET (FP) PO ONE (22:11)
[2020-03-20] MEDS: PRAMIPEXOLE DIHYDROCHLORIDE 0.5 MG TABLET PO SCH ×2 (06:28→15:05)
[2020-03-20] MEDS: ACETAMINOPHEN 325 MG TABLET (FP) PO PRN ×2 (06:35→12:15)
[2020-03-20 06:41] VITALS: TEMP 98.6
[2020-03-20 09:32] LABS: CALCIUM 8.5 mg/dL (8.5-10.1)
[2020-03-20 09:33] LABS: ALBUMIN 3.2 g/dl (3.4-5.0); BLOOD UREA NITROGEN 23.2 mg/dL (7-18)
[2020-03-20 09:36] LABS: CREATININE 0.8 mg/dL (0.55-1.3)
[2020-03-20 09:38] LABS: BILIRUBIN,TOTAL 0.8 mg/dL (0.2-1); TOT PROT 6.3 g/dl (6.4-8.2)
[2020-03-20] MEDS: ENOXAPARIN NA (PORCINE) 40 MG/0.4 ML DISP.SYRIN SQ SCH (10:53)
[2020-03-20] MEDS: CHOLECALCIFEROL (VIT D3) 1,000 UNIT (25 MCG) TABLET PO SCH (10:54)
[2020-03-20] MEDS: ZINC SULFATE 220 MG CAPSULE (FP) PO SCH (10:54)
[2020-03-20] MEDS: ASCORBIC ACID 500 MG TABLET (FP) PO SCH (10:55)
[2020-03-20] MEDS: FERROUS SO4 325 MG TABLET (FP) PO SCH (10:55)
[2020-03-20] MEDS: amLODIPine BESYLATE 5 MG TABLET (FP) PO SCH (10:55)
[2020-03-20] MEDS: DEXAMETHASONE SOD PHOSPHATE 4 MG/1 ML VIAL IVPUSH SCH (10:56)
[2020-03-20] MEDS: PANTOPRAZOLE 40 MG TABLET PO SCH (10:56)
[2020-03-20 11:33] LABS: MAGNESIUM 2.2 mg/dL (1.8-2.4)
[2020-03-20] MEDS ORDERED: BACLOFEN 10 MG TABLET (FP) PO ONE (12:01)
[2020-03-20 16:15] VITALS: BP 128/70; PULSE 72
[2020-03-20] MEDS: REMDESIVIR 100 MG in SODIUM CHLORIDE 230 ML IVPB SCH (16:34)
== END 2020-03-20 18:57 | disposition home or self-care (01) | DRG 177 ==
LOC: FER 11:35 → J6WEST-2 21:00
PROVIDERS: ADMIT Internal Medicine; ATTEND Internal Medicine
PROC: 8E0ZXY6 Isolation (ICD-10-PCS; 2020-03-15)
PROC: XW033E5 Introduction of Remdesivir Anti-infective into Peripheral Vein, Percutaneous Approach, New Technology Group 5 (ICD-10-PCS; 2020-03-16)
PROC: XW13325 Transfusion of Convalescent Plasma (Nonautologous) into Peripheral Vein, Percutaneous Approach, New Technology Group 5 (ICD-10-PCS; principal; 2020-03-17)
DX: U07.1 COVID-19 (principal); J12.82 Pneumonia due to coronavirus disease 2019; J96.01 Acute respiratory failure with hypoxia; I10 Essential (primary) hypertension; G62.9 Polyneuropathy, unspecified; G25.81 Restless legs syndrome; Z85.3 Personal history of malignant neoplasm of breast; Z98.84 Bariatric surgery status
CPT/HCPCS: 36415; 36430; 71045-TC-FY; 80048; 80053; 81003; 82248; 82550; 82728; 82803; 82962; 83540; 83550; 83605; 83615; 83735; 84100; 84484; 85025; 85027; 85379; 85384; 85610; 85730; 86140; 86850; 86900; 86901; 87040; 87086; 93005; 93971-TC; 94010; 94761; 97116-GP; 97162-GP; 99285-25; C9399; C9803; J0475; P9017; U0003

== ENCOUNTER 2020-08-19 14:00 | Emergency (ER) | payer OTHER, MEDICARE ==
[2020-08-19 14:15] VITALS: BP 143/63; PULSE 82; TEMP 98.2; BMI 29.7
[2020-08-19] MEDS ORDERED: LIDOCAINE HCL 2% (20ML MULTI-DOSE VIAL) ONE (15:34)
== END 2020-08-19 15:56 | disposition home or self-care (01) ==
LOC: FER 14:00
DX: R22.42 Localized swelling, mass and lump, left lower limb (principal)
CPT/HCPCS: 93970-TC; 99284-25